=== PATIENT | female | born 1980 | race African-American/Black ===

== ENCOUNTER 2024-02-17 08:57 | Inpatient (IN) | payer BC, MEDICAID ==
[~2024-02-17] VITALS: Ht 167.6 cm; Wt 66.2 kg
[2024-02-17] MEDS ORDERED: MORPHINE SULFATE INJ 2 MG/ml SYRG IM ONE (09:15)
[2024-02-17 10:00] VITALS: PULSE 121; RESP 20; O2SAT 100
[2024-02-17] MEDS: ONDANSETRON HCL 4 MG/2 ML VIAL IV ONE (10:03)
[2024-02-17] MEDS: METOCLOPRAMIDE HCL 5MG/ml INJ 2ml VIAL IV ONE (10:04)
--- NOTE | 2024-02-17 10:05 | ED.PDOC ---
SOB-HPI HPI Comments 43 y.o female presents to the ED via EMS for a chief complaint of SOB. Patient reports no alleviating factors, has no respiratory illnesses or on oxygen at home. Patient also complains of abdominal pain, nausea, and hematemesis x 2 days. Patient admits to drinking alcohol daily. No other complaints at this time. Patient has a history of HTN, reports she is non compliant with medication and blood pressure reads 215/149 upon ED arrival. Chief Complaint: Shortness of Breath Time Seen by MD: 09:24 Reviewed notes: Nurses Notes, Medications, Allergies Information Source: Patient Mode of Arrival: EMS Severity: Moderate Timing: Days (2) Duration: Since onset Context: At Rest PE Risk Factors: None History of: None Modifying Factors: Nothing Associated Signs and Symptoms: Other Past Medical History PAST MEDICAL HISTORY: HTN Surgical History: Tubal Ligation STAINED GLASS INSTALLER History: No Pertinent STAINED GLASS INSTALLER History Family History Family History: Reviewed,noncontributory to illness Social History Smoker: Non-Smoker Alcohol: Heavy Drugs: Denies Drug Use Lives In: Home Constitutional: denies: chills, diaphoresis, fatigue, fever, malaise, sweats, weakness, others EENTM: denies: blurred vision, double vision, ear bleeding, ear discharge, ear drainage, ear pain, ear ringing, eye pain, eye redness, hearing loss, mouth pain, mouth swelling, nasal discharge, nose bleeding, nose congestion, nose pain, photophobia, tearing, throat pain, throat swelling, voice changes, others Respiratory: reports: SOB at rest, shortness of breath; denies: cough, hemoptys is, orthopnea, SOB with excertion, stridor, wheezing, others Cardiovascular: denies: chest pain, dizzy spells, diaphoresis, Dyspnea on exertion, edema, irregular heart beat, left arm pain, lightheadedness, palpitations, PND, syncope, others Gastrointestinal: reports: abdominal pain, hematemesis, nausea, vomiting; denies: abdomen distended, blood streaked bowels, constipated, diarrhea, dysphagia, difficulty swallowing, melena, poor appetite, poor fluid intake, rectal bleeding, rectal pain, others Genitourinary: denies: abnormal vagina bleeding, burning, dyspareunia, dysuria, flank pain, frequency, hematuria, incontinence, pain, , vagina discharge, urgency, others Neurological: denies: dizziness, fainting, headache, left sided numbness, left sided weakness, numbness, paresthesia, pre-existing deficit, right sided numbness, right sided weakness, seizure, speech problems, tingling, tremors, weakness, others Musculoskeletal: denies: back pain, gout, joint pain, joint swelling, muscle pain, muscle stiffness, neck pain, others Integumetry: denies: bruises, change in color, change in hair/nails, dryness, laceration, lesions, lumps, rash, wounds, others Allergic/Immunocompromised: denies: Difficulty Healing, Frequent Infections, Hives, Itching, others Hematologic/Lymphatic: denies: anemia, blood clots, easy bleeding, easy bruising, swollen glands, others Endocrine: denies: excessive hunger, excessive sweating, excessive thirst, excessive urination, flushing, intolerance to cold, intolerance to heat, unexplained weight gain, unexplained weight loss, others Psychiatric: denies: anxiety, bipolar disorder, depression, hopeless, panic disorder, schizophrenia, sleepless, suicidal, others All Other Systems: Reviewed and Negative Physical Exam General Appearance: No Apparent Distress, Normal HEENT: Normal ENT Inspection, Pharynx Normal, TMs Normal Neck: Full Range of Motion, Non-Tender, Normal, Normal Inspection Respiratory: Chest Non-Tender, Lungs Clear, No Accessory Muscle Use, No Respiratory Distress, Normal Breath Sounds Cardiovascular: No Edema, No JVD, No Murmur, No Gallop, Normal Peripheral Pulses, Regular Rate/Rhythm Breast Exam: Deferred Gastrointestinal: No Organomegaly, Non Tender, No Pulsatile Mass, Normal Bowel Sounds, Soft Genitalia: Deferred Pelvic: Deferred Rectal: Deferred Extremities: No calf tenderness, Normal capillary refill, Normal inspection, Normal range of motion, Non-tender, No pedal edema Musculoskeletal : Apperance: Normal Neurologic: Alert, assistant analyst II-XII nml as Tested, No Motor Deficits, Normal Affect, Normal Mood, No Sensory Deficits Cerebellar Function: Normal Reflexes: Normal Skin: Dry, Normal Color, Warm Lymphatic: No Adenopathy Was a procedure done? Was a procedure done?: No Differential Dx Differential Diagnosis: Asthma, Bronchitis, Pneumonia, Respiratory Distress, URI X-Ray, Labs, Meds, VS Vital Signs Date Time Temp Pulse Resp B/P (MAP) Pulse Ox O2 Delivery O2 Flow Rate FiO2 12/27/24 11:30 123 15 163/118 (133) 100 02/17/24 11:26 123 15 163/118 02/17/24 10:12 121 20 191/142 02/17/24 10:11 191/142 02/17/24 10:00 98.0 121 20 191/142 (158) 100 98.0 02/17/24 10:00 121 20 100 Room Air* 0 21 02/17/24 08:57 97.7 116 24 215/149 (171) 100 Lab Test 02/17/24 11:37 02/17/24 10:27 Range/Units Troponin I High Sensitivity 7 6 </=34 ng/L White Blood Count 9.3 4.4-10.8 10^3/uL Red Blood Count 4.64 4.0-5.20 10^6/uL Hemoglobin 13.7 12.2-16.2 g/dL Hematocrit 44.1 36.0-46.0 % Mean Corpuscular Volume 95.0 80.0-100.0 fL Mean Corpuscular Hemoglobin 29.6 28.0-32.0 pg Mean Corpuscular Hemoglobin Concent 31.1 L 32.0-36.0 g/dL Red Cell Distribution Width 19.2 H 11.8-14.3 % Platelet Count 125 L 140-450 10^3/uL Mean Platelet Volume 9.7 6.9-10.8 fL Neutrophils (%) (Auto) 87.5 H 37.0-80.0 % Lymphocytes (%) (Auto) 5.7 L 10.0-50.0 % Monocytes (%) (Auto) 6.2 0.0-12.0 % Eosinophils (%) (Auto) 0.0 0.0-7.0 % Basophils (%) (Auto) 0.6 0.0-2.0 % Neutrophils # (Auto) 8.1 1.6-8.6 10 ^3/uL Lymphocytes # (Auto) 0.5 0.4-5.4 10 ^3/uL Monocytes # (Auto) 0.6 0-1.3 10 ^3/uL Eosinophils # (Auto) 0 0-0.8 10 ^3/uL Basophils # (Auto) 0.1 0-0.2 10 ^3/uL Nucleated Red Blood Cells 0.6 % Prothrombin Time 10.5 9.3-11.8 sec Prothrombin Time INR 0.99 0.9-1.15 Activated Partial Thromboplast Time 25.9 24.5-34.5 SEC D-Dimer, Quantitative 2.56 H 0.0-0.49 mg/L FEU Sodium Level 132 L 136-145 mmol/L Potassium Level 3.9 3.5-5.1 mmol/L Chloride Level 98 98-107 mmol/L Carbon Dioxide Level < 10 *L 20-31 mmol/L Anion Gap 24.51565 H 5-15 Blood Urea Nitrogen 9 9-23 mg/dL Creatinine 1.30 H 0.550-1.02 mg/dL Glomerular Filtration Rate Calc 52 >90 mL/min BUN/Creatinine Ratio 6.9 L 10.0-20.0 Serum Glucose 116 H 74-106 mg/dL Calcium Level 10.7 H 8.7-10.4 mg/dL Magnesium Level 2.1 1.6-2.6 mg/dL Total Bilirubin 1.8 H 0.2-1.0 mg/dL Aspartate Amino Transferase (AST) 171 H 13-40 U/L Alanine Aminotransferase (ALT) 41 H 7-40 U/L Alkaline Phosphatase 186 H 46-116 U/L Ammonia 52 H 11-32 umol/L B-Type Natriuretic Peptide 29.10 0-100 pg/mL Total Protein 9.1 H 5.7-8.2 g/dL Albumin 5.5 H 3.2-4.8 g/dL Plasma/Serum Blood Alcohol < 3.0 <10 mg/dL Current Medications Medications (Trade) Dose Ordered Sig/Artemio Route Start Time Stop Time Status Last Admin Hydrochlorothiazide (hydroCHLOROthiazide TABLET) 25 mg ONCE ONCE PO 02/17/24 09:15 02/17/24 09:16 DC 02/17/24 10:11 Metoclopramide HCl (Reglan Injection) 10 mg ONCE ONCE IV 02/17/24 10:00 02/17/24 10:01 DC 02/17/24 10:04 Ondansetron HCl (Zofran) 4 mg ONCE ONCE IV 02/17/24 10:00 02/17/24 10:01 NV 02/17/24 10:03 Sodium Chloride 1,000 ml @ 150 mls/hr Q6H40M ONCE IV 02/17/24 10:00 02/17/24 16:39 02/17/24 10:07 Morphine Sulfate 2 mg ONCE ONCE IV 02/17/24 10:15 02/17/24 10:16 DC 02/17/24 10:12 Time of 1ST Reevaluation: 10:07 Reevaluation 1ST: Unchanged Patient Education/Counseling: Diagnosis, Treatment, Prognosis Family Education/Counseling: No Family Present Additional Information The following tests were ordered, and results were reviewed by me: LAB, CT ABD, CXR, EKG, PHA Additional Information was gathered from interviewing the following independent historians: paramedics I reviewed and agreed with the following test results read by other providers: CT ABD and CXR I discussed treatment and results with medical personnel and patient Departure 1 Departure Time of Disposition: 12:45 Impression: Primary Impression: Acidosis due to type 1 diabetes mellitus Additional Impressions: Hypertension Renal failure Dehydration MADELINE (acute kidney injury) Disposition: ADMITTED INPATIENT Admit to: ICU Condition: Critical Critical Care Note Critical Care Time?: No Stability Stability form required: No I personally scribed for TIMMY FLORES MD ([email or web address]) on 02/17/24 at 10:12. Electronically submitted by Shari Vargas ([facility]). I personally scribed for TIMMY FLORES MD ([email or web address]) on 02/17/24 at 10:15. Electronically submitted by Shari Vargas ([facility]). TIMMY FLORES MD Feb 17, 2024 10:05
[2024-02-17] MEDS: SODIUM CHLORIDE 0.9% 1,000 ML IV ONE (10:07)
[2024-02-17] MEDS: hydroCHLOROthiazide 25 MG TAB PO ONE (10:11)
[2024-02-17] MEDS: MORPHINE SULFATE INJ 2 MG/ml SYRG IV ONE (10:12)
[2024-02-17 10:48] LABS: Basophils # (auto) 0.1 10 ^3/uL (0-0.2); Basophils % (auto) 0.6 % (0.0-2.0); Eosinophils # (auto) 0 10 ^3/uL (0-0.8); Lymphocytes # (auto) 0.5 10 ^3/uL (0.4-5.4); Monocytes # (auto) 0.6 10 ^3/uL (0-1.3); Neutrophils % (auto) 87.5 % (37.0-80.0)
[2024-02-17 10:50] LABS: Hematocrit 44.1 % (36.0-46.0); Hemoglobin 13.7 g/dL (12.2-16.2); Lymphocytes % (auto) 5.7 % (10.0-50.0); Mean Corpuscular Hemoglobin 29.6 pg (28.0-32.0); Mean Corpuscular Hgb Conc. 31.1 g/dL (32.0-36.0); Monocytes % (auto) 6.2 % (0.0-12.0); Neutrophils # (auto) 8.1 10 ^3/uL (1.6-8.6); Nucleated Red Blood Cells % 0.6 %; Platelet Count (auto) 125 10^3/uL (140-450); Red Blood Cells 4.64 10^6/uL (4.0-5.20); Red Cell Distribution Width 19.2 % (11.8-14.3); White Blood Cell 9.3 10^3/uL (4.4-10.8)
[2024-02-17 11:03] LABS: Anion Gap 24.00001 (5-15); BUN/Creatinine Ratio 6.9 (10.0-20.0); Magnesium 2.1 mg/dL (1.6-2.6); Potassium 3.9 mmol/L (3.5-5.1)
[2024-02-17 11:04] LABS: INR 0.99 (0.9-1.15); Partial Thromboplastin Time 25.9 SEC (24.5-34.5); Prothrombin Time 10.5 sec (9.3-11.8)
[2024-02-17 11:09] LABS: Alanine Aminotransferase 41 U/L (7-40); Albumin 5.5 g/dL (3.2-4.8); Alkaline Phosphatase 186 U/L (46-116); Aspartate Aminotransferase 171 U/L (13-40); Bilirubin, Total 1.8 mg/dL (0.2-1.0); Blood Urea Nitrogen 9 mg/dL (9-23); Calcium 10.7 mg/dL (8.7-10.4); Chloride 98 mmol/L (98-107); Glucose 116 mg/dL (74-106); Sodium 132 mmol/L (136-145); Total Protein 9.1 g/dL (5.7-8.2)
[2024-02-17 11:10] LABS: Carbon Dioxide < 10 mmol/L (20-31)
[2024-02-17 11:21] LABS: Blood Alcohol < 3.0 mg/dL (<10)
[2024-02-17 12:48] VITALS: PULSE 111; RESP 22; O2SAT 100
[2024-02-17 12:49] LABS: Urine Bacteria None Seen /hpf (None Seen)
[2024-02-17] MEDS: cloNIDine HCL 0.1 MG TAB PO ONE (13:12)
[2024-02-17] MEDS: SODIUM CHLORIDE 0.9% 1,700 ML IV ONE (13:13)
[2024-02-17 13:18] LABS: Urine Blood 1+ /uL (Negative); Urine Clarity Turbid (Clear); Urine Color Yellow (Yellow); Urine Hyaline Cast MANY /lpf (0 - 2); Urine Mucus FEW (None Seen); Urine Protein, UAD 2+ (Negative); Urine Specific Gravity 1.018 (1.001-1.035); Urine Squamous Epithelial Cell FEW /hpf (<5); Urine Urobilinogen 4 mg/dL (Negative); Urine WBC 1 /hpf (0 - 5)
[2024-02-17 13:18] LABS: Base Excess -18.7 mmol/L (-2.0-3.0)
[2024-02-17 13:25] LABS: Opiate Scree,Urine Neg (NEGATIVE)
[2024-02-17 13:28] LABS: Amphetamine Screen, Urine Neg (NEGATIVE); Barbiturate Scree,Urine Neg (NEGATIVE); Benzodiazephine Screen, Urine Neg (NEGATIVE); Cannabinoid Screen, Urine Neg (NEGATIVE); Cocaine Screen, Urine Neg (NEGATIVE); Phencyclidine Screen, Urine Neg (NEGATIVE)
[2024-02-17] MEDS ORDERED: ALBU1AER4 IN (14:46)
--- NOTE | 2024-02-17 14:56 | DVH ---
CHEST RADIOGRAPH Indication: cough Technique: Single frontal view of the chest was obtained Comparison: None FINDINGS: Lines and Tubes: None Lungs: No focal consolidation. Pleura: No effusion. No pneumothorax. Cardiomediastinal contours: Unremarkable Bones: No acute osseous abnormality. IMPRESSION: No acute cardiopulmonary disease.
--- NOTE | 2024-02-17 15:09 | DVH ---
CT ABDOMEN AND PELVIS WITHOUT CONTRAST CLINICAL HISTORY: abdominal pain, GI bleed TECHNIQUE: Multiple contiguous axial images of the abdomen and pelvis without intravenous contrast. The images were reformatted degenerate coronal and sagittal reconstructions. All CT scans at this medical facility are performed using dose modulation techniques as appropriate t o a performed exam including the following:Automated exposure control was utilized; adjustment of the MA and/or KV according to patient size; and use of iterative reconstruction technique. Radiation Dose Information: CT Dose: CTDI volume is 7 mGy. Dose-length product is 382 mGy*cm Comparison: None FINDINGS: Evaluation of the abdomen and pelvis is limited without intravenous contrast. There is moderate edema and fat stranding surrounding the pancreas compatible with acute pancreatitis . There is no discrete peripancreatic localized fluid collection or cyst. There is diffuse fatty infiltration of the liver. The gallbladder, kidneys, adrenal glands, and s pleen appear within normal limits. There is no gross evidence of abdominal lymphadenopathy. There is no free fluid or free air. The stomach grossly appears unremarkable. The small and large bowel loops demonstrate normal caliber . There is a normal-appearing appendix seen in the right lower quadrant abdomen. The abdominal aorta and IVC appear within normal limits. The bladder appears unremarkable for the degree of distention. Pelvic organ appears within normal farris its. There is no gross evidence of a pelvic mass. There is no free fluid collection. Lung bases are clear. There is no acute osseous abnormality. IMPRESSION: 1. There is moderate edema and fat stranding surrounding the pancreas compatible with acute pancreati tis. There is no discrete localized fluid collection or cyst. 2. Hepatic steatosis. HS:Y
[2024-02-17] MEDS: LACTATED RINGER'S 1,700 ML IV ONE (16:16)
[2024-02-17 17:10] LABS: Amylase 366 U/L (30-118)
[2024-02-17 18:07] LABS: Lipase 1254 U/L (12-53)
[2024-02-17 20:41] LABS: Alanine Aminotransferase 25 U/L (7-40); Albumin 4.3 g/dL (3.2-4.8); Anion Gap 17 (5-15); BUN/Creatinine Ratio 6.7 (10.0-20.0); Calcium 9.7 mg/dL (8.7-10.4); Chloride 103 mmol/L (98-107)
[2024-02-17 20:42] LABS: Total Protein 7.3 g/dL (5.7-8.2)
[2024-02-17 21:02] LABS: Alkaline Phosphatase 141 U/L (46-116); Aspartate Aminotransferase 93 U/L (13-40); Bilirubin, Total 1.6 mg/dL (0.2-1.0); Blood Urea Nitrogen 7 mg/dL (9-23); Carbon Dioxide 13 mmol/L (20-31); Glucose 124 mg/dL (74-106); Potassium 3.4 mmol/L (3.5-5.1); Sodium 133 mmol/L (136-145)
[2024-02-17] MEDS ORDERED: METOCLOPRAMIDE HCL 5MG/ml INJ 2ml VIAL IV PRN (21:45)
[2024-02-17] MEDS ORDERED: NITROGLYCERIN 0.4 MG SL TAB SL PRN (21:45)
[2024-02-17] MEDS ORDERED: MORPHINE SULFATE INJ 2 MG/ml SYRG IV PRN (21:45)
[2024-02-17] MEDS: SODIUM CHLORIDE 0.9% 1,000 ML IV SCH (22:09)
[2024-02-17 22:28] LABS: Basophils # (auto) 0.1 10 ^3/uL (0-0.2); Basophils % (auto) 0.7 % (0.0-2.0); Eosinophils # (auto) 0 10 ^3/uL (0-0.8); Eosinophils % (auto) 0.5 % (0.0-7.0); Hematocrit 39.8 % (36.0-46.0); Hemoglobin 12.4 g/dL (12.2-16.2); Lymphocytes # (auto) 0.6 10 ^3/uL (0.4-5.4); Lymphocytes % (auto) 6.5 % (10.0-50.0); Mean Corpuscular Hemoglobin 29.5 pg (28.0-32.0); Mean Corpuscular Hgb Conc. 31.1 g/dL (32.0-36.0); Mean Corpuscular Volume 94.8 fL (80.0-100.0); Monocytes # (auto) 0.6 10 ^3/uL (0-1.3); Neutrophils # (auto) 7.6 10 ^3/uL (1.6-8.6); Neutrophils % (auto) 85.3 % (37.0-80.0); Nucleated Red Blood Cells % 0.3 %; Platelet Count (auto) 109 10^3/uL (140-450); Red Blood Cells 4.19 10^6/uL (4.0-5.20); White Blood Cell 8.9 10^3/uL (4.4-10.8)
[2024-02-18] VITALS (7 sets, daily range): BP systolic 132–150; BP diastolic 86–104; PULSE 86–114; RESP 13–20; TEMP 97.8–99; O2SAT 97–100
[2024-02-18] MEDS: ONDANSETRON HCL 4 MG/2 ML VIAL IV PRN (01:03)
[2024-02-18] MEDS: MORPHINE SULFATE INJ 2 MG/ml SYRG IV PRN (01:04)
[2024-02-18] MEDS ORDERED: LORazepam 2MG/ML-1ML VIAL IV PRN (03:00)
--- NOTE | 2024-02-18 03:02 | DVHHP2 ---
BLACK KAPLAN VISUAL MERCHANDISING MANAGER 02/18/24 0302: History of Present Illness Reason for Visit: Abdominal pain, n/v History of Present Illness 43-year-old female with Past medical history of hypertension presents with complaints of abdominal pain, nausea, vomiting, Red Streaking in her emesis x2 days. Also endorses the shortness of breath which is triggered by The abdominal pain. Patient does endorse daily alcohol consumption. No history of diabetes. On arrival to the emergency department patient is noted to be hypertensive with the blood pressure 215/149 And started on a nicardipine drip. At this time patient denied fevers, chills, shortness of breath, Chest pain, palpitations, Coffee ground emesis, hematochezia, melena. Cardiovascular: HTN Smoke: <1 pack per day ALCOHOL: heavy Drugs: None Lives: with Family Review of Systems Constitutional: No: Fever, Chills, Sweats, Weakness, Malaise, Other Eyes: No: Pain, Vision change, Conjunctivae inflammation, Eyelid inflammation, Other, Redness ENT: No: Ear pain, Ear discharge, Nose pain, Nose discharge, Nose congestion, Mouth pain, Mouth swelling, Throat pain, Throat swelling, Other Respiratory: Shortness of breath; No: Cough, Dry, SOB with excertion, Wheezing, Hemoptysis, Pleuritic Pain, Sputum, Wheezing, Other Cardiovascular: No: Chest Pain, Palpitations, Orthopnea, Paroxysmal Noc. Dyspnea, Edema, Lt Headedness, Other Gastrointestinal: Nausea, Vomiting, Abdominal Pain; No: Diarrhea, Constipation, Melena, Hematochezia, Other Genitourinary: No Dysuria, No Frequency, No Incontinence, No Hematuria, No Retention, No Other Musculoskeletal: No: other, neck pain, shoulder pain, arm pain, back pain, hand pain, leg pain, foot pain Skin: No: Rash, Lesions, Jaundice, Bruising, Other Neurological: No: Weakness, Numbness, Incoordination, Change in speech, Confusion, Seizures, Other Allergies: Coded Allergies: Lisinopril (Verified Allergy, Unknown, 02/17/24) Medications Current Medications Medications Dose Ordered Sig/Artemio Route Start Time Stop Time Status Last Admin Dose Admin Nicardipine HCl 250 ml @ 50 mls/hr Q5H IV 02/17/24 14:15 02/17/24 22:00 25 MLS/HR Sodium Chloride 1,000 ml @ 150 mls/hr Q6H40M IV 02/17/24 21:45 02/17/24 22:10 150 MLS/HR Metoclopramide HCl 10 mg Q4HP PRN IV 02/17/24 21:45 Acetaminophen 650 mg Q6HP PRN PO 02/17/24 21:45 Ondansetron HCl 4 mg Q4HP PRN IV 02/17/24 21:45 02/18/24 01:03 4 MG Morphine Sulfate 4 mg Q4HPRN PRN IV 02/17/24 21:45 02/18/24 01:04 4 MG Enoxaparin Sodium 40 mg DAILY SC 02/18/24 10:00 Nitroglycerin 0.4 mg Q5MINP PRN SL 02/17/24 21:45 Morphine Sulfate 2 mg Q30M PRN IV 02/17/24 21:45 Hydralazine HCl 10 mg Q4HP PRN IV 02/17/24 21:45 Folic Acid 1 mg/ Magnesium Sulfate 8 meq/ Multivitamins 10 ml/Thiamine HCl 100 mg/Sodium Chloride 1,013.2 ml @ 126.247 mls/hr DAILY@1800 INJ 02/18/24 18:00 UNV Lorazepam 1 mg Q4HPRN PRN IV 02/18/24 03:00 UNV Exam Vital Signs Vital Signs Date Time Temp Pulse Resp B/P (MAP) Pulse Ox O2 Delivery O2 Flow Rate FiO2 02/18/24 02:15 103 18 123/90 (101) 98 02/17/24 19:30 Room Air* 0 21 02/17/24 19:30 97.7 97.7 General Appearance: Alert, Oriented X3, Cooperative, moderate distress HEENT: Atraumatic, PERRLA, EOMI Respiratory: Clear to auscultation, Normal air movement Cardiovascular: Normal S1, Normal S2, Other (Tachycardia) Abdominal: Normal bowel sounds, Soft, No tenderness Extremities: No clubbing, No cyanosis, No edema Skin: No rashes, No breakdown Neuro: Normal speech, Strength at 5/5 X4 ext Psych/Mental Status: Mental status NL, Mood NL Labs/Xrays Labs Test 02/17/24 22:19 02/17/24 20:10 02/17/24 13:31 12/27/24 13:18 Range/Units White Blood Count 8.9 4.4-10.8 10^3/uL Red Blood Count 4.19 4.0-5.20 10^6/uL Hemoglobin 12.4 12.2-16.2 g/dL Hematocrit 39.8 36.0-46.0 % Mean Corpuscular Volume 94.8 80.0-100.0 fL Mean Corpuscular Hemoglobin 29.5 28.0-32.0 pg Mean Corpuscular Hemoglobin Concent 31.1 L 32.0-36.0 g/dL Red Cell Distribution Width 19.0 H 11.8-14.3 % Platelet Count 109 L 140-450 10^3/uL Mean Platelet Volume 10.3 6.9-10.8 fL Neutrophils (%) (Auto) 85.3 H 37.0-80.0 % Lymphocytes (%) (Auto) 6.5 L 10.0-50.0 % Monocytes (%) (Auto) 7.0 0.0-12.0 % Eosinophils (%) (Auto) 0.5 0.0-7.0 % Basophils (%) (Auto) 0.7 0.0-2.0 % Neutrophils # (Auto) 7.6 1.6-8.6 10 ^3/uL Lymphocytes # (Auto) 0.6 0.4-5.4 10 ^3/uL Monocytes # (Auto) 0.6 0-1.3 10 ^3/uL Eosinophils # (Auto) 0 0-0.8 10 ^3/uL Basophils # (Auto) 0.1 0-0.2 10 ^3/uL Nucleated Red Blood Cells 0.3 % Sodium Level 133 L 136-145 mmol/L Potassium Level 3.4 L 3.5-5.1 mmol/L Chloride Level 103 98-107 mmol/L Carbon Dioxide Level 13 L 20-31 mmol/L Anion Gap 17 H 5-15 Blood Urea Nitrogen 7 L 9-23 mg/dL Creatinine 1.05 H 0.550-1.02 mg/dL Glomerular Filtration Rate Calc 67 >90 mL/min BUN/Creatinine Ratio 6.7 L 10.0-20.0 Serum Glucose 124 H 74-106 mg/dL Calcium Level 9.7 8.7-10.4 mg/dL Total Bilirubin 1.6 H 0.2-1.0 mg/dL Aspartate Amino Transferase (AST) 93 H 13-40 U/L Alanine Aminotransferase (ALT) 25 7-40 U/L Alkaline Phosphatase 141 H 46-116 U/L Total Protein 7.3 5.7-8.2 g/dL Albumin 4.3 3.2-4.8 g/dL Troponin I High Sensitivity 7 </=34 ng/L POC Glucose 137 H 70-106 mg/dl Test 02/17/24 13:10 02/17/24 10:27 02/17/24 10:15 Range/Units Blood Gas Specimen Type Arterial Blood Gas Sample Site Right radial Blood Gas Patient Temperature 37.0 Arterial Blood Date Drawn [id number] Arterial Blood pH 7.238 *L 7.350-7.450 Arterial Blood Partial Pressure CO2 14.4 *L 32.0-45.0 mmHg Arterial Blood Partial Pressure O2 105.6 83.0-108.0 mmHg Arterial Blood HCO3 6.0 L 21.0-28.0 mmol/L Arterial Blood Oxygen Saturation 97.9 94.0-98.0 % Arterial Blood Base Excess -18.7 L -2.0-3.0 mmol/L Arterial Blood Oxyhemoglobin 96.1 94.0-98.0 % Arterial Blood Carboxyhemoglobin 1.2 0.5-1.5 % Arterial Blood Methemoglobin 0.6 0.0-1.5 % Iván Test Yes Blood Gas Total Hemoglobin 14.10 12.0-16.0 g/dL Blood Gas Modality Room air FiO2 % 21.0 Blood Gas Critical Value Read Back Yes Blood Gas Notified Whom Danita martins. Blood Gas Notified Time [id number] Blood Gas Notified By Yasmany belcher Prothrombin Time 10.5 9.3-11.8 sec Prothrombin Time INR 0.99 0.9-1.15 Activated Partial Thromboplast Time 25.9 24.5-34.5 SEC D-Dimer, Quantitative 2.56 H 0.0-0.49 mg/L FEU Magnesium Level 2.1 1.6-2.6 mg/dL Ammonia 52 H 11-32 umol/L Lactate Dehydrogenase 291 H 120-246 U/L B-Type Natriuretic Peptide 29.10 0-100 pg/mL Amylase Level 366 H 30-118 U/L Lipase 1254 H 12-53 U/L Plasma/Serum Blood Alcohol < 3.0 <10 mg/dL Urine Color Yellow Yellow Urine Clarity Turbid H Clear Urine pH 6.0 5.0-9.0 Urine Specific Mcintosh 1.018 1.001-1.035 Urine Protein 2+ H Negative Urine Ketones 4+ H Negative Urine Blood 1+ H Negative /uL Urine Nitrite Negative Negative Urine Bilirubin 1+ H Negative Urine Urobilinogen 4 H Negative mg/dL Urine Leukocyte Esterase Negative Negative /uL Urine RBC <1 0 - 4 /hpf Urine WBC 1 0 - 5 /hpf Urine Squamous Epithelial Cells Few <5 /hpf Urine Bacteria None seen None Seen /hpf Urine Hyaline Casts Many 0 - 2 /lpf Urine Mucus Few None Seen Urine Glucose Normal Normal mg/dL Urine Test Negative Negative Urine Opiates Screen Neg NEGATIVE Urine Fentanyl Screen Neg NEGATIVE Urine Barbiturates Screen Neg NEGATIVE Urine Phencyclidine Screen Neg NEGATIVE Urine Amphetamines Screen Neg NEGATIVE Urine Benzodiazepines Screen Neg NEGATIVE Urine Cocaine Screen Neg NEGATIVE Urine Cannabinoids Screen Neg NEGATIVE Assessment/Plan Assessment/Plan Acute pancreatitis, likely alcohol induced Severe metabolic acidosis Dehydration Hypertensive urgency Transaminitis Alcohol dependence Plan Admit ICU Cardiology consult. Echocardiogram. Continue nicardipine drip or ICU protocol. Gastroenterology consult. NPO diet. IVF. Banana bag. Seizure precautions. Ativan IV for seizures Monitor BMP, phos, mag every six hours. GI ppx protonix / DVT ppx lovenox Plan discussed with: Patient My Orders Orders - BLACK KAPLAN NP Procedure Category Date Status Time Admit ADMIT 02/17/24 Transmitted 21:40 Code Status CODE 02/17/24 Transmitted 21:40 Vital Signs [facility] 02/17/24 In Process 21:40 Review Orders With JORDAN 02/17/24 In Process Adm. 21:40 Encourage Activity As JORDAN 02/17/24 In Process Tolerate 21:40 Npo (Nothing By DIET 02/18/24 Transmitted Mouth) Diet Breakfast Sodium Chloride 0.9% PHA 02/17/24 In Process 21:45 Oxygen By Face Mask RT 02/17/24 Transmitted 21:40 Metoclopramide PHA 02/17/24 In Process Injection (Reglan 21:45 Acetaminophen Tablet PHA 02/17/24 In Process (Tylenol Tablet) 21:45 Notify Of Changes JORDAN 02/17/24 In Process From Base 21:40 Advance Directive JORDAN 02/17/24 In Process 21:40 Echo 2d Mode Cardiac US 02/17/24 Logged DOP 21:40 Basic Metabolic Panel LAB 02/18/24 Logged 06:00 Basic Metabolic Panel LAB 02/18/24 Logged 12:00 Basic Metabolic Panel LAB 02/18/24 Logged 18:00 Basic Metabolic Panel LAB 02/19/24 Verified 00:00 Basic Metabolic Panel LAB 02/19/24 Verified 06:00 Basic Metabolic Panel LAB 02/19/24 Verified 12:00 Patient Condition ORDERS 02/17/24 Transmitted 21:40 Allergies JORDAN 02/17/24 In Process 21:40 Ondansetron Hcl PHA 02/17/24 In Process (Zofran) 21:45 Morphine Sulfate PHA 02/17/24 In Process Injection 21:45 Enoxaparin Sodium PHA 02/18/24 In Process (Lovenox) 10:00 Sequential JORDAN 02/17/24 In Process Compression Device Nitroglycerin PHA 02/17/24 In Process Sublingual (Ntrostat 21:45 Morphine Sulfate PHA 02/17/24 In Process Injection 21:45 Stat Ekg For Chest JORDAN 02/17/24 In Process Pain 21:40 Notify Of Changes JORDAN 02/17/24 In Process From Base 21:40 Liability Claims Adjuster For JRODAN 02/17/24 In Process 24 Hours 21:40 Emergency Dysrhythmia JORDAN 02/17/24 In Process Protocol 21:40 Rhythm Strips Once JORDAN 02/17/24 In Process Every Shift 21:40 Oxygen By Nasal RT 02/17/24 Transmitted Cannula 21:40 Communication Order ORDERS 02/17/24 Transmitted 21:40 * Gi Dvh Barrel Brander CONS 02/17/24 Transmitted 21:40 Lipase LAB 02/18/24 Logged 06:00 Magnesium LAB 02/18/24 Logged 06:00 Magnesium LAB 02/18/24 Logged 12:00 Magnesium LAB 02/18/24 Logged 18:00 Magnesium LAB 02/19/24 Verified 00:00 Phosphorus LAB 02/18/24 Logged 06:00 Phosphorus LAB 02/18/24 Logged 12:00 Phosphorus LAB 02/18/24 Logged 18:00 Phosphorus LAB 02/19/24 Verified 00:00 Hydralazine Injection PHA 02/17/24 In Process (Apresoline Inject 21:45 * Cardiology Consult CONS 02/17/24 Transmitted 21:40 Seizure Precautions JORDAN 02/18/[address] 02:49 Folic Acid... PHA 02/18/24 Logged 18:00 Lorazepam 2mg/Ml Inj PHA 02/18/24 Logged (Ativan Inj) 03:00 Date of Service: Feb 18, 2024 Billing Provider: BRITTANY HEADLEY MD Common Visit Codes: NOT BILLABLE BRITTANY HEADLEY MD 02/18/24 1707: Review of Systems Allergies: Coded Allergies: Lisinopril (Verified Allergy, Unknown, 02/17/24) Additional Comments Additional Comments Additional Comments 43-year-old female who initially presented to the hospital with abdominal pain nausea vomiting found to have 1. Acute alcohol-induced pancreatitis 2. Transaminitis 3. Severe metabolic acidosis secondary to nausea vomiting 4. Hypophosphatemia 5. Hypokalemia -alcohol abstinence recommended, repeat lipase, liquid diet Repeat labs, replace potassium phosphorus. BLACK KAPLAN NP Feb 18, 2024 03:02 BRITTANY HEADLEY MD Feb 18, 2024 17:07
[2024-02-18 05:00] LABS: Chloride 102 mmol/L (98-107)
[2024-02-18 05:01] LABS: Anion Gap 12 (5-15); Calcium 9.8 mg/dL (8.7-10.4)
[2024-02-18 05:06] LABS: Carbon Dioxide 19 mmol/L (20-31); Potassium 3.1 mmol/L (3.5-5.1); Sodium 133 mmol/L (136-145)
[2024-02-18 05:07] LABS: BUN/Creatinine Ratio 5.6 (10.0-20.0); Blood Urea Nitrogen < 5 mg/dL (9-23); Glucose 114 mg/dL (74-106); Magnesium 1.6 mg/dL (1.6-2.6)
[2024-02-18 05:08] LABS: Phosphorus 1.2 mg/dL (2.4-5.1)
[2024-02-18] MEDS: POTASSIUM CHL 20MEQ/100ML 100 ML IV ONE (05:28)
[2024-02-18] MEDS: ENOXAPARIN SOD 40 MG/0.4 ML SYRINGE SC SCH (11:52)
[2024-02-18 12:35] LABS: Magnesium 1.7 mg/dL (1.6-2.6)
[2024-02-18 12:37] LABS: Phosphorus 0.7 mg/dL (2.4-5.1)
[2024-02-18 13:20] LABS: Chloride 103 mmol/L (98-107)
[2024-02-18 13:21] LABS: Anion Gap 13 (5-15); Calcium 9.8 mg/dL (8.7-10.4)
[2024-02-18 13:26] LABS: Glucose 102 mg/dL (74-106)
[2024-02-18 13:39] LABS: BUN/Creatinine Ratio 6.4 (10.0-20.0); Blood Urea Nitrogen < 5 mg/dL (9-23); Carbon Dioxide 17 mmol/L (20-31); Potassium 3.2 mmol/L (3.5-5.1); Sodium 133 mmol/L (136-145)
[2024-02-18] MEDS: ACETAMINOPHEN 325 MG TAB PO PRN (15:54)
[2024-02-18] MEDS: POTASSIUM PHOSPHATE 26.4 MEQ in SODIUM CHL 0.9% 100 ML IV ONE (18:11)
[2024-02-18] MEDS: FOLIC ACID 1 MG, MAGNESIUM SULF SDV 50% 8 MEQ, MULTIPLE VITAMIN 10 ML, THIAMINE INJ 100... INJ SCH (19:04)
[2024-02-18 19:38] LABS: Chloride 102 mmol/L (98-107)
[2024-02-18 19:39] LABS: Anion Gap 10 (5-15); Calcium 9.8 mg/dL (8.7-10.4); Carbon Dioxide 23 mmol/L (20-31)
[2024-02-18 19:40] LABS: Potassium 2.9 mmol/L (3.5-5.1); Sodium 135 mmol/L (136-145)
[2024-02-18 19:44] LABS: BUN/Creatinine Ratio 7.2 (10.0-20.0); Blood Urea Nitrogen 5 mg/dL (9-23); Glucose 93 mg/dL (74-106)
[2024-02-18 19:59] LABS: Magnesium 1.5 mg/dL (1.6-2.6); Phosphorus 0.6 mg/dL (2.4-5.1)
--- NOTE | 2024-02-18 22:14 | DVHINCON2 ---
Date of service: Feb 18, 2024 Referring Physician Bhavana Ernandez Reason for Consultation Nausea vomiting and elevated liver enzymes and pancreatitis History of Present Illness 43-year-old female with past medical history of hypertension presents with complaints of abdominal pain, nausea, vomiting, red streaking in her emesis x2 days. Also endorses the shortness of breath which is triggered by the abdominal pain. Patient does endorse daily alcohol consumption. No history of diabetes. On arrival to the emergency department patient is noted to be hypertensive with the blood pressure 215/149 And started on a nicardipine drip. At this time patient denied fevers, chills, shortness of breath, Chest pain, palpitations, Coffee ground emesis, hematochezia, melena. Patient was seen in ER bed 24 in the a.m.. She was feeling better and was ready to try clear liquid diet. She has not had a recent endoscopy. Patient had moderate elevation in her lipase suggestive of acute pancreatitis and suspected mild gastritis Past Medical History Cardiovascular: HTN Asthma Chronic ETOH abuse Past Surgical History Tubal ligation Family History: Hypercholesterolemia G8 FATHER Hypertension G8 FATHER Allergies: Coded Allergies: Lisinopril (Verified Allergy, Unknown, 02/17/24) Home Meds Active Scripts Albuterol Sulfate (Proair Respiclick) 108 Mcg/Act Aer, 108 MCG IN QIDPRN, #1 AER Prov:TIMMY FLORES MD 02/17/24 Current Medications Current Medications Medications (Trade) Dose Ordered Sig/Artemio Route PRN Reason Start Time Stop Time Status Last Admin Enoxaparin Sodium (Lovenox) 40 mg DAILY SC 02/18/24 10:00 Folic Acid 1 mg/ Magnesium Sulfate 8 meq/ Multivitamins 10 ml/Thiamine HCl 100 mg/Sodium Chloride 1,013.2 ml @ 126.247 mls/hr DAILY@1800 INJ 02/18/24 18:00 02/18/24 19:04 Lorazepam (Ativan Inj) 1 mg Q4HPRN PRN IV SEIZURES 02/18/24 03:00 Vital Signs Vital Signs Date Time Temp Pulse Resp B/P (MAP) Pulse Ox O2 Delivery O2 Flow Rate FiO2 02/18/24 21:00 98.7 102 18 143/98 (113) 99 98.7 02/18/24 14:00 Room Air* 0 21 Physical Exam General Appearance: Alert, Oriented X3, Cooperative, no distress HEENT: Atraumatic, PERRLA, EOMI Respiratory: Clear to auscultation, Normal air movement Cardiovascular: Normal S1, Normal S2, Other (Tachycardia) Abdominal: Normal bowel sounds, Soft, No tenderness Extremities: No clubbing, No cyanosis, No edema Skin: No rashes, No breakdown Neuro: Normal speech, Strength at 5/5 X4 ext Psych/Mental Status: Mental status NL, Mood NL Labs/Diagnostic Data Labs Test 02/18/24 18:53 02/18/24 04:05 02/17/24 22:19 02/17/24 20:10 Range/Units Sodium Level 135 L 136-145 mmol/L Potassium Level 2.9 L 3.5-5.1 mmol/L Chloride Level 102 98-107 mmol/L Carbon Dioxide Level 23 20-31 mmol/L Anion Gap 10 5-15 Blood Urea Nitrogen 5 L 9-23 mg/dL Creatinine 0.69 0.550-1.02 mg/dL Glomerular Filtration Rate Calc 109 >90 mL/min BUN/Creatinine Ratio 7.2 L 10.0-20.0 Serum Glucose 93 74-106 mg/dL Calcium Level 9.8 8.7-10.4 mg/dL Phosphorus Level 0.6 L 2.4-5.1 mg/dL Magnesium Level 1.5 L 1.6-2.6 mg/dL Lipase 867 H 12-53 U/L White Blood Count 8.9 4.4-10.8 10^3/uL Red Blood Count 4.19 4.0-5.20 10^6/uL Hemoglobin 12.4 12.2-16.2 g/dL Hematocrit 39.8 36.0-46.0 % Mean Corpuscular Volume 94.8 80.0-100.0 fL Mean Corpuscular Hemoglobin 29.5 28.0-32.0 pg Mean Corpuscular Hemoglobin Concent 31.1 L 32.0-36.0 g/dL Red Cell Distribution Width 19.0 H 11.8-14.3 % Platelet Count 109 L 140-450 10^3/uL Mean Platelet Volume 10.3 6.9-10.8 fL Neutrophils (%) (Auto) 85.3 H 37.0-80.0 % Lymphocytes (%) (Auto) 6.5 L 10.0-50.0 % Monocytes (%) (Auto) 7.0 0.0-12.0 % Eosinophils (%) (Auto) 0.5 0.0-7.0 % Basophils (%) (Auto) 0.7 0.0-2.0 % Neutrophils # (Auto) 7.6 1.6-8.6 10 ^3/uL Lymphocytes # (Auto) 0.6 0.4-5.4 10 ^3/uL Monocytes # (Auto) 0.6 0-1.3 10 ^3/uL Eosinophils # (Auto) 0 0-0.8 10 ^3/uL Basophils # (Auto) 0.1 0-0.2 10 ^3/uL Nucleated Red Blood Cells 0.3 % Total Bilirubin 1.6 H 0.2-1.0 mg/dL Aspartate Amino Transferase (AST) 93 H 13-40 U/L Alanine Aminotransferase (ALT) 25 7-40 U/L Alkaline Phosphatase 141 H 46-116 U/L Total Protein 7.3 5.7-8.2 g/dL Albumin 4.3 3.2-4.8 g/dL Test 02/17/24 13:31 02/17/24 13:18 02/17/24 13:10 02/17/24 10:27 Range/Units Troponin I High Sensitivity 7 </=34 ng/L POC Glucose 137 H 70-106 mg/dl Blood Gas Specimen Type Arterial Blood Gas Sample Site Right radial Blood Gas Patient Temperature 37.0 Arterial Blood Date Drawn [id number] Arterial Blood pH 7.238 *L 7.350-7.450 Arterial Blood Partial Pressure CO2 14.4 *L 32.0-45.0 mmHg Arterial Blood Partial Pressure O2 105.6 83.0-108.0 mmHg Arterial Blood HCO3 6.0 L 21.0-28.0 mmol/L Arterial Blood Oxygen Saturation 97.9 94.0-98.0 % Arterial Blood Base Excess -18.7 L -2.0-3.0 mmol/L Arterial Blood Oxyhemoglobin 96.1 94.0-98.0 % Arterial Blood Carboxyhemoglobin 1.2 0.5-1.5 % Arterial Blood Methemoglobin 0.6 0.0-1.5 % Iván Test Yes Blood Gas Total Hemoglobin 14.10 12.0-16.0 g/dL Blood Gas Modality Room air FiO2 % 21.0 Blood Gas Critical Value Read Back Yes Blood Gas Notified Whom Danita martins. Blood Gas Notified Time [id number] Blood Gas Notified By Yasmany belcher Prothrombin Time 10.5 9.3-11.8 sec Prothrombin Time INR 0.99 0.9-1.15 Activated Partial Thromboplast Time 25.9 24.5-34.5 SEC D-Dimer, Quantitative 2.56 H 0.0-0.49 mg/L FEU Ammonia 52 H 11-32 umol/L Lactate Dehydrogenase 291 H 120-246 U/L B-Type Natriuretic Peptide 29.10 0-100 pg/mL Amylase Level 366 H 30-118 U/L Plasma/Serum Blood Alcohol < 3.0 <10 mg/dL Test 02/17/24 10:15 Range/Units Urine Color Yellow Yellow Urine Clarity Turbid H Clear Urine pH 6.0 5.0-9.0 Urine Specific [place] 1.018 1.001-1.035 Urine Protein 2+ H Negative Urine Ketones 4+ H Negative Urine Blood 1+ H Negative /uL Urine Nitrite Negative Negative Urine Bilirubin 1+ H Negative Urine Urobilinogen 4 H Negative mg/dL Urine Leukocyte Esterase Negative Negative /uL Urine RBC <1 0 - 4 /hpf Urine WBC 1 0 - 5 /hpf Urine Squamous Epithelial Cells Few <5 /hpf Urine Bacteria None seen None Seen /hpf Urine Hyaline Casts Many 0 - 2 /lpf Urine Mucus Few None Seen Urine Glucose Normal Normal mg/dL Urine Test Negative Negative Urine Opiates Screen Neg NEGATIVE Urine Fentanyl Screen Neg NEGATIVE Urine Barbiturates Screen Neg NEGATIVE Urine Phencyclidine Screen Neg NEGATIVE Urine Amphetamines Screen Neg NEGATIVE Urine Benzodiazepines Screen Neg NEGATIVE Urine Cocaine Screen Neg NEGATIVE Urine Cannabinoids Screen Neg NEGATIVE CT SCAN ABD PELVIS IMPRESSION: 1. There is moderate edema and fat stranding surrounding the pancreas compatible with acute pancreatitis. There is no discrete localized fluid collection or cyst. 2. Hepatic steatosis. Problems(with codes): (1) Alcohol abuse (2) Acute pancreatitis (3) Dehydration (4) Renal failure (5) Hypertension (6) MADELINE (acute kidney injury) (7) Hypokalemia (8) Metabolic acidosis (9) Elevated liver enzymes Plan/Recommendation Plan IV Protonix 40 mg daily Clear liquid diet Monitor labs Check hepatitis panel Patient was counseled about discontinuing alcohol Right upper quadrant ultrasound I will follow up patient with you Plan discussed with: Patient, Other (ER Nurse) KENJI PEDROZA MD Feb 18, 2024 22:14
[2024-02-19] VITALS (8 sets, daily range): BP systolic 133–149; BP diastolic 92–110; PULSE 88–102; RESP 16–18; TEMP 98.1–99.8; O2SAT 98–100
[2024-02-19 01:00] LABS: Chloride 105 mmol/L (98-107)
[2024-02-19 01:01] LABS: Anion Gap 6 (5-15); Calcium 9.3 mg/dL (8.7-10.4); Carbon Dioxide 24 mmol/L (20-31)
[2024-02-19 01:02] LABS: Potassium 2.9 mmol/L (3.5-5.1); Sodium 135 mmol/L (136-145)
--- NOTE | 2024-02-19 01:02 | DVH ---
ABDOMINAL ULTRASOUND CLINICAL HISTORY: elevated liver tests pancreatitis TECHNIQUE: Multiple grayscale and color Doppler ultrasound images were obtained of the abdomen. WID: COMPARISON: CT abdomen and pelvis from 02/17/2024 FINDINGS: Liver and Biliary System: Increased echogenicity, increased size measuring 19.95 cm. No focal hepa tic observations. No intrahepatic bile duct dilatation. The common duct measures 0.57 cm at the por ta hepatis. The gallbladder normal caliber without wall thickening or cholelithiasis.. Pancreas: Increased echogenicity in the setting of known pancreatitis. Kidneys: The right kidney is 11.6 cm . No hydronephrosis, increased echogenicity, shadowing stone, or focal lesion. IMPRESSION: 1. Hepatomegaly with diffuse hepatic steatosis. 2. No acute cholecystitis or cholelithiasis
[2024-02-19 01:06] LABS: Glucose 89 mg/dL (74-106)
[2024-02-19 01:07] LABS: Magnesium 1.7 mg/dL (1.6-2.6)
[2024-02-19 01:23] LABS: BUN/Creatinine Ratio 8.2 (10.0-20.0); Blood Urea Nitrogen < 5 mg/dL (9-23)
[2024-02-19 01:24] LABS: Phosphorus 1.1 mg/dL (2.4-5.1)
[2024-02-19 06:45] LABS: Basophils # (auto) 0 10 ^3/uL (0-0.2); Basophils % (auto) 0.3 % (0.0-2.0); Eosinophils # (auto) 0 10 ^3/uL (0-0.8); Hematocrit 28.2 % (36.0-46.0); Lymphocytes # (auto) 0.6 10 ^3/uL (0.4-5.4); Lymphocytes % (auto) 13.3 % (10.0-50.0); Mean Corpuscular Hemoglobin 29.4 pg (28.0-32.0); Mean Corpuscular Hgb Conc. 31.9 g/dL (32.0-36.0); Mean Corpuscular Volume 92.3 fL (80.0-100.0); Monocytes # (auto) 0.3 10 ^3/uL (0-1.3); Monocytes % (auto) 7.8 % (0.0-12.0); Neutrophils # (auto) 3.4 10 ^3/uL (1.6-8.6); Neutrophils % (auto) 77.6 % (37.0-80.0); Nucleated Red Blood Cells % 0.2 %; Platelet Count (auto) 80 10^3/uL (140-450); Red Blood Cells 3.05 10^6/uL (4.0-5.20); Red Cell Distribution Width 17.6 % (11.8-14.3); White Blood Cell 4.4 10^3/uL (4.4-10.8)
[2024-02-19 06:48] LABS: Alanine Aminotransferase 21 U/L (7-40); Albumin 3.7 g/dL (3.2-4.8); Alkaline Phosphatase 105 U/L (46-116); Anion Gap 8 (5-15); Calcium 8.9 mg/dL (8.7-10.4); Carbon Dioxide 23 mmol/L (20-31); Chloride 106 mmol/L (98-107); Glucose 90 mg/dL (74-106); Magnesium 1.8 mg/dL (1.6-2.6); Sodium 137 mmol/L (136-145)
[2024-02-19 06:49] LABS: Aspartate Aminotransferase 90 U/L (13-40); BUN/Creatinine Ratio 10.4 (10.0-20.0); Bilirubin, Total 1.2 mg/dL (0.2-1.0); Blood Urea Nitrogen < 5 mg/dL (9-23); Total Protein 6.1 g/dL (5.7-8.2)
[2024-02-19 06:54] LABS: Potassium 2.5 mmol/L (3.5-5.1)
[2024-02-19 06:58] LABS: Lipase 969 U/L (12-53)
[2024-02-19] MEDS: POTASSIUM CHL 20 Meq TABLET PO ONE (09:38)
[2024-02-19 13:05] LABS: Chloride 107 mmol/L (98-107); Sodium 137 mmol/L (136-145)
[2024-02-19 13:06] LABS: Anion Gap 9 (5-15); Calcium 8.9 mg/dL (8.7-10.4); Carbon Dioxide 21 mmol/L (20-31)
[2024-02-19 13:11] LABS: Glucose 90 mg/dL (74-106)
[2024-02-19 13:14] LABS: BUN/Creatinine Ratio 11.1 (10.0-20.0); Blood Urea Nitrogen < 5 mg/dL (9-23); Potassium 2.8 mmol/L (3.5-5.1)
[2024-02-19] MEDS: POTASSIUM PHOSPHATE 26.4 MEQ in SODIUM CHL 0.9% 100 ML IV ONE (14:15)
--- NOTE | 2024-02-19 14:23 | DVHSR ---
APPROVED REPORT EXAM: Two-dimensional and M-mode echocardiogram with Doppler and color Doppler. Blood Pressure: 126/92 mmHg INDICATION Hypertensive urgency RISK FACTORS Height: 5'4", Weight: 132 DIMENSIONS LVDd3.3 (3.8-5.7cm)LA (2D)3.5 (1.9-4.0cm)Aortic Root3.3 (2.0-3.7cm) LVDs2.3 (2.5-4.0cm)LA (MM) (1.9-4.0cm)Aortic Cusp Exc2.1 (1.5-2.0cm) EF (%) 60.0 (55-70%)Rt. Atrium3.4 (1.9-4.0cm)Asc. Aorta cm IVSd1.1 (0.7-1.1cm)RV (D) (1.8-2.4cm) PWd1.3 (0.7-1.1cm) Mitral Valve MitralMitral Stenosis E wave0.43m/sMV Mean GR.mmHg A wave0.69m/sMV Peak GR.mmHg E/A ratio0.62D MVAcm2 DECEL [id number] 1/2 Timems Aortic Valve Aortic ValveAortic Stenosis V10.78m/Jass Mean GR.3mmHg V21.10m/Jass Peak GR.5mmHg LVOT Diameter2.2 (1.8-2.4cm)Doppler AVA2.69cm2 Pulmonic Valve V20.60m/s Tricuspid Valve TR Velocity2.21m/s [id number] Conclusion Technically good study. Sinus rhythm. Concentric LVH. Valves are normal. 65% ejection fraction. Dopplers normal. No pericardial effusion masses or vegetations.
[2024-02-19] MEDS: FOLIC ACID 1 MG TAB PO ONE (15:12)
[2024-02-19] MEDS: MAGNESIUM OXIDE 400 MG TAB PO ONE (15:12)
[2024-02-19] MEDS: THIAMINE HCL 100 MG TAB PO ONE (15:12)
[2024-02-19] MEDS: MULTIPLE VITAMIN TAB PO ONE (15:12)
--- NOTE | 2024-02-19 15:57 | DVHPN2 ---
Progress Note - Dictate Date Seen: Feb 19, 2024 Medical Necessity Reason Pt with a Central, PICC or Fol: No Subjective No new complaints Patient tolerating clear liquid diet No further episodes of GI bleeding nausea or vomiting; hemoglobin down to 9.0 Three bowel movements recorded Echo results noted vital signs Vital Sign Date Time Temp Pulse Resp B/P (MAP) Pulse Ox O2 Delivery O2 Flow Rate FiO2 02/19/24 13:00 98.3 102 16 135/102 (113) 100 98.3 02/18/24 20:00 Room Air* 0 21 Total Intake and Output 02/18/24 02/18/24 02/19/24 15:00 23:00 07:00 Intake Total 285 ml 390 ml 2113.2 ml Balance 285 ml 390 ml 2113.2 ml medications Current Medications Medications Dose Ordered Sig/Artemio Route Start Time Stop Time Status Last Admin Dose Admin Sodium Chloride 1,000 ml @ 150 mls/hr Q6H40M IV 02/17/24 21:45 02/19/24 13:45 150 MLS/HR Metoclopramide HCl 10 mg Q4HP PRN IV 02/17/24 21:45 Acetaminophen 650 mg Q6HP PRN PO 02/17/24 21:45 02/18/24 22:22 650 MG Ondansetron HCl 4 mg Q4HP PRN IV 02/17/24 21:45 02/18/24 01:03 4 MG Morphine Sulfate 4 mg Q4HPRN PRN IV 02/17/24 21:45 02/18/24 01:04 4 MG Enoxaparin Sodium 40 mg DAILY SC 02/18/24 10:00 Nitroglycerin 0.4 mg Q5MINP PRN SL 02/17/24 21:45 Morphine Sulfate 2 mg Q30M PRN IV 02/17/24 21:45 Hydralazine HCl 10 mg Q4HP PRN IV 02/17/24 21:45 Lorazepam 1 mg Q4HPRN PRN IV 02/18/24 03:00 Folic Acid 1 mg DAILY PO 02/20/24 10:00 Multivitamins 1 tab DAILY PO 02/20/24 10:00 Magnesium Oxide 400 mg DAILY PO 02/20/24 10:00 Thiamine HCl 100 mg DAILY PO 02/20/24 10:00 objective General Appearance: Alert, Oriented X3, Cooperative, no distress HEENT: Atraumatic, PERRLA, EOMI Respiratory: Clear to auscultation, Normal air movement Cardiovascular: Normal S1, Normal S2, Other (Tachycardia) Abdominal: Normal bowel sounds, Soft, No tenderness Extremities: No clubbing, No cyanosis, No edema Skin: No rashes, No breakdown Neuro: Normal speech, Strength at 5/5 X4 ext Psych/Mental Status: Mental status NL, Mood NL laboratory and microbiology Laboratory Tests 02/19/24 12:15 02/19/24 05:49 Test 02/19/24 12:15 Range/Units Serum Glucose 90 74-106 mg/dL Problems(with codes): (1) Anemia (2) Elevated liver enzymes (3) Metabolic acidosis (4) Hypokalemia (5) Acute pancreatitis (6) MADELINE (acute kidney injury) (7) Dehydration Prognosis Plan IV Protonix 40 mg daily Clear liquid diet Monitor labs ; stool for occult blood Hepatitis panel pending, toxicology screen negative Patient was counseled about discontinuing alcohol Right upper quadrant ultrasound showed hepatomegaly and diffuse hepatic steatosis Repeat lipase level in a.m. Consider EGD in a.m. pending results I will follow up patient with you Plan discussed with: Patient KENJI PEDROZA MD Feb 19, 2024 15:57
--- NOTE | 2024-02-19 16:40 | DVHPN2 ---
Subjective Overnight events noted. Patient is complaining of minimal pain in the left upper quadrant. Reviewed: Care Plan Changes from previous H/P or p: No Changes Eyes: No Pain, No Vision change, No Conjunctivae inflammation, No Eyelid inflammation, No Other, No Redness ENT: No Ear pain, No Ear discharge, No Nose pain, No Nose discharge, No Nose congestion, No Mouth pain, No Mouth swelling, No Throat pain, No Throat swelling, No Other Cardiovascular: No Chest Pain, No Palpitations, No Orthopnea, No Paroxysmal Noc. Dyspnea, No Edema, No Lt Headedness, No Other Respiratory: No Cough, No Dry; Shortness of breath; No SOB with excertion, No Wheezing, No Hemoptysis, No Pleuritic Pain, No Sputum, No Other Gastrointestinal: Nausea, Vomiting, Abdominal Pain; No Diarrhea, No Constipation, No Melena, No Hematochezia, No Other Genitourinary: No Dysuria, No Frequency, No Incontinence, No Hematuria, No Retention, No Other Musculoskeletal: No other, No neck pain, No shoulder pain, No arm pain, No back pain, No hand pain, No leg pain, No foot pain Skin: No Rash, No Lesions, No Jaundice, No Bruising, No Other Objective Vitals Vital Signs Date Time Temp Pulse Resp B/P (MAP) Pulse Ox O2 Delivery O2 Flow Rate FiO2 02/19/24 13:00 98.3 102 16 135/102 (113) 100 98.3 02/18/24 20:00 Room Air* 0 21 Intake/Output Intake and Output 02/19/24 07:00 Intake Total 2788.2 ml Balance 2788.2 ml Intake Oral 440 ml IV Total 2348.2 ml # Voids 4 # Bowel Movements 3 Exam HEENT pupils are reactive Neck is supple CV is S1-S2 regular rate and rhythm Respiratory are clear GI positive bowel sounds soft nondistended mildly tender in the left upper quadrant with a minimal guarding no rigidity Extremity no edema POT SANDER no motor deficit Medications Current Medications Medications Dose Ordered Sig/Artemio Route Start Time Stop Time Status Last Admin Dose Admin Sodium Chloride 1,000 ml @ 150 mls/hr Q6H40M IV 02/17/24 21:45 02/19/24 13:45 150 MLS/HR Metoclopramide HCl 10 mg Q4HP PRN IV 02/17/24 21:45 Acetaminophen 650 mg Q6HP PRN PO 02/17/24 21:45 02/18/24 22:22 650 MG Ondansetron HCl 4 mg Q4HP PRN IV 02/17/24 21:45 02/18/24 01:03 4 MG Morphine Sulfate 4 mg Q4HPRN PRN IV 02/17/24 21:45 02/18/24 01:04 4 MG Enoxaparin Sodium 40 mg DAILY SC 02/18/24 10:00 Nitroglycerin 0.4 mg Q5MINP PRN SL 02/17/24 21:45 Morphine Sulfate 2 mg Q30M PRN IV 02/17/24 21:45 Hydralazine HCl 10 mg Q4HP PRN IV 02/17/24 21:45 Lorazepam 1 mg Q4HPRN PRN IV 02/18/24 03:00 Folic Acid 1 mg DAILY PO 02/20/24 10:00 Multivitamins 1 tab DAILY PO 02/20/24 10:00 Magnesium Oxide 400 mg DAILY PO 02/20/24 10:00 Thiamine HCl 100 mg DAILY PO 02/20/24 10:00 Laboratory Results Laboratory Tests 02/19/24 05:49 02/19/24 12:15 Chemistry Test 02/18/24 18:53 02/19/24 00:24 02/19/24 05:49 02/19/24 12:15 Calcium Level 9.8 mg/dL (8.7-10.4) 9.3 mg/dL (8.7-10.4) 8.9 mg/dL (8.7-10.4) 8.9 mg/dL (8.7-10.4) Magnesium Level 1.5 mg/dL (1.6-2.6) L 1.7 mg/dL (1.6-2.6) 1.8 mg/dL (1.6-2.6) Phosphorus Level 0.6 mg/dL (2.4-5.1) L 1.1 mg/dL (2.4-5.1) L 1.0 mg/dL (2.4-5.1) L Albumin 3.7 g/dL (3.2-4.8) Total Protein 6.1 g/dL (5.7-8.2) Lipid panel Test 02/19/24 05:49 Lipase 969 U/L (12-53) H LFT Test 02/19/24 05:49 Alanine Aminotransferase (ALT) 21 U/L (7-40) Alkaline Phosphatase 105 U/L (46-116) Aspartate Amino Transferase (AST) 90 U/L (13-40) H Total Bilirubin 1.2 mg/dL (0.2-1.0) H Urinalysis Test 02/17/24 10:15 Urine Color Yellow (Yellow) Urine Clarity Turbid (Clear) H Urine pH 6.0 (5.0-9.0) Urine Specific [place] 1.018 (1.001-1.035) Urine Protein 2+ (Negative) H Urine Ketones 4+ (Negative) H Urine Blood 1+ /uL (Negative) H Urine Nitrite Negative (Negative) Urine Bilirubin 1+ (Negative) H Urine Urobilinogen 4 mg/dL (Negative) H Urine Leukocyte Esterase Negative /uL (Negative) Urine RBC <1 /hpf (0 - 4) Urine WBC 1 /hpf (0 - 5) Urine Squamous Epithelial Cells Few /hpf (<5) Urine Bacteria None seen /hpf (None Seen) Urine Hyaline Casts Many /lpf (0 - 2) Urine Mucus Few (None Seen) Urine Glucose Normal mg/dL (Normal) Urine Test Negative (Negative) Assessment/Plan Assessment/Plan 43-year-old female who initially presented to the hospital with abdominal pain nausea vomiting found to have 1. Acute alcohol-induced pancreatitis 2. Transaminitis 3. Severe metabolic acidosis secondary to nausea vomiting 4. Hypophosphatemia 5. Hypokalemia -replace electrolytes, repeat labs in the morning, discharge plan. Plan discussed with: Patient My Orders Orders - BRITTANY HEADLEY MD Procedure Category Date Status Time Potassium Phosphate PHA 02/19/24 In Process 14:15 Date of Service: Feb 19, 2024 Billing Provider: BRITTANY HEADLEY MD Common Visit Codes: NOT BILLABLE BRITTANY HEADLEY MD Feb 19, 2024 16:39
--- NOTE | 2024-02-19 17:54 | DVHINCON2 ---
DATE OF CONSULTATION: 02/18/2024 REFERRING PHYSICIAN: Dr. Burroughs. CONSULTING PHYSICIAN: Dr. Chan. INDICATION: Hypertensive urgency. HISTORY OF PRESENT ILLNESS: The patient is a 43-year-old female with history of hypertension, initially presented to the hospital with complaints of abdominal pain, nausea and vomiting. On presentation her blood pressure was markedly elevated, systolic in the 200 range. At the time of my evaluation, her blood pressure was better controlled, systolic in the 140-150 range. The patient has not been compliant with home medication. PAST MEDICAL HISTORY: Hypertension. MEDICATIONS: Per med rec. ALLERGIES: LISINOPRIL. PHYSICAL EXAMINATION: GENERAL: Alert and awake, in no form of cardiopulmonary distress. VITAL SIGNS: Blood pressure 130/90, pulse 91, saturation 99%. HEENT: No carotid bruits. No jugular venous distention. CHEST: Bilateral air entry. CARDIOVASCULAR: Precordial and carotid pulses palpable. Normal S1, S2. Regular rate and rhythm. No appreciable gallops or rubs. EXTREMITIES: No peripheral edema. DIAGNOSTIC DATA: White count 8, hemoglobin 12, platelets 209. Sodium 133, potassium 3.2, creatinine 0.7, magnesium is 1.5. Troponin is negative x3. ASSESSMENT: * Abdominal pain, nausea, vomiting. * Hypertensive urgency. * Hypokalemia. * Hypomagnesemia. * Metabolic acidosis. RECOMMENDATIONS: * Currently, the patient is off nicardipine drip. * If blood pressure remains uncontrolled, add calcium channel michelle, amlodipine. * Supplement potassium. * Supplement magnesium. * Monitor electrolytes closely. * We will review echo once completed. * Continue telemetry monitoring. Thank you for allowing me to participate in the care of this patient. MD GATO Galindo/JUSTIN/PATRICK TID: [id number] RECEIPT: [id number]
[2024-02-20] VITALS (8 sets, daily range): BP systolic 138–165; BP diastolic 91–111; PULSE 87–111; RESP 17–19; TEMP 98.5–99.6; O2SAT 96–100
[2024-02-20 07:16] LABS: Basophils # (auto) 0 10 ^3/uL (0-0.2); Basophils % (auto) 0.6 % (0.0-2.0); Eosinophils # (auto) 0.1 10 ^3/uL (0-0.8); Eosinophils % (auto) 1.7 % (0.0-7.0); Hematocrit 27.4 % (36.0-46.0); Hemoglobin 8.8 g/dL (12.2-16.2); Lymphocytes # (auto) 0.9 10 ^3/uL (0.4-5.4); Lymphocytes % (auto) 19.2 % (10.0-50.0); Mean Corpuscular Hemoglobin 29.5 pg (28.0-32.0); Mean Corpuscular Hgb Conc. 31.9 g/dL (32.0-36.0); Mean Corpuscular Volume 92.4 fL (80.0-100.0); Monocytes # (auto) 0.4 10 ^3/uL (0-1.3); Neutrophils # (auto) 3.2 10 ^3/uL (1.6-8.6); Neutrophils % (auto) 69.5 % (37.0-80.0); Platelet Count (auto) 111 10^3/uL (140-450); Red Blood Cells 2.97 10^6/uL (4.0-5.20); Red Cell Distribution Width 17.3 % (11.8-14.3); White Blood Cell 4.5 10^3/uL (4.4-10.8)
[2024-02-20] MEDS ORDERED: LIDOCAINE VISCOUS 2% 15ML UD ONE (08:13)
[2024-02-20] MEDS ORDERED: MIDAZOLAM HCL 5 MG/ML-1ML VIAL ONE (08:13)
[2024-02-20] MEDS ORDERED: SODIUM CHLORIDE LOCK 0 ML ONE (08:13)
[2024-02-20] MEDS ORDERED: fentaNYL CITRATE 100 MCG/2 ML VL ONE (08:14)
[2024-02-20] MEDS ORDERED: diphenhdrAMINE HCL 50 MG/1 ML VL ONE (08:14)
[2024-02-20 08:15] LABS: Alanine Aminotransferase 24 U/L (7-40); Albumin 3.7 g/dL (3.2-4.8); Alkaline Phosphatase 105 U/L (46-116); Amylase 344 U/L (30-118); Anion Gap 11 (5-15); Aspartate Aminotransferase 82 U/L (13-40); BUN/Creatinine Ratio 13.5 (10.0-20.0); Bilirubin, Total 0.7 mg/dL (0.2-1.0); Blood Urea Nitrogen < 5 mg/dL (9-23); Calcium 8.9 mg/dL (8.7-10.4); Carbon Dioxide 20 mmol/L (20-31); Chloride 109 mmol/L (98-107); Glucose 88 mg/dL (74-106); Magnesium 1.4 mg/dL (1.6-2.6); Sodium 140 mmol/L (136-145)
[2024-02-20 08:17] LABS: Phosphorus 1.3 mg/dL (2.4-5.1)
[2024-02-20 08:18] LABS: Potassium 2.2 mmol/L (3.5-5.1)
[2024-02-20 09:11] LABS: Lipase 1108 U/L (12-53)
[2024-02-20] MEDS: FOLIC ACID 1 MG TAB PO SCH (09:42)
[2024-02-20] MEDS: MAGNESIUM OXIDE 400 MG TAB PO SCH (09:42)
[2024-02-20] MEDS: MULTIPLE VITAMIN TAB PO SCH (09:42)
[2024-02-20] MEDS: THIAMINE HCL 100 MG TAB PO SCH (09:42)
[2024-02-20 09:46] LABS: Hepatitis B Core Total AB Negative (Negative)
[2024-02-20] MEDS: POTASSIUM CHL 20 Meq TABLET PO ONE (10:00)
[2024-02-20] MEDS: POTASSIUM CHLORIDE 60 MEQ, LIDOCAINE 1% (LOCAL ANESTH.) 6 ML in SODIUM CHL 0.9% 500 ML IV ONE (12:30)
[2024-02-20] MEDS: hydrALAZINE HCL 20 MG/ML VL IV PRN (14:11)
[2024-02-20 14:23] LABS: Hepatitis A Total Antibody Negative (Negative); Hepatitis B Surface Antibody Negative (Negative); Hepatitis B Surface Antigen Negative (Negative); Hepatitis C Antibody Negative (Negative)
[2024-02-20] MEDS ORDERED: NEUTRA-PHOS TABLET PO ONE (15:15)
--- NOTE | 2024-02-20 16:59 | DVHPN2 ---
Subjective Overnight events noted. Patient is going for EGD tomorrow. Reviewed: Care Plan Changes from previous H/P or p: No Changes Eyes: No Pain, No Vision change, No Conjunctivae inflammation, No Eyelid inflammation, No Other, No Redness ENT: No Ear pain, No Ear discharge, No Nose pain, No Nose discharge, No Nose congestion, No Mouth pain, No Mouth swelling, No Throat pain, No Throat swelling, No Other Cardiovascular: No Chest Pain, No Palpitations, No Orthopnea, No Paroxysmal Noc. Dyspnea, No Edema, No Lt Headedness, No Other Respiratory: No Cough, No Dry; Shortness of breath; No SOB with excertion, No Wheezing, No Hemoptysis, No Pleuritic Pain, No Sputum, No Other Gastrointestinal: Nausea, Vomiting, Abdominal Pain; No Diarrhea, No Constipation, No Melena, No Hematochezia, No Other Genitourinary: No Dysuria, No Frequency, No Incontinence, No Hematuria, No Retention, No Other Musculoskeletal: No other, No neck pain, No shoulder pain, No arm pain, No back pain, No hand pain, No leg pain, No foot pain Skin: No Rash, No Lesions, No Jaundice, No Bruising, No Other Objective Vitals Vital Signs Date Time Temp Pulse Resp B/P (MAP) Pulse Ox O2 Delivery O2 Flow Rate FiO2 02/20/24 14:11 162/113 02/20/24 13:00 98.5 97 17 96 98.5 02/20/24 08:00 Room Air* 0 21 Intake/Output Intake and Output 02/20/24 07:00 Intake Total 2325 ml Balance 2325 ml Intake Oral 1325 ml IV Total 1000 ml # Voids 12 # Bowel Movements 8 Exam HEENT pupils are reactive Neck is supple CV is S1-S2 regular rate and rhythm Respiratory are clear GI positive bowel sounds soft nondistended mildly tender in the left upper quadrant with a minimal guarding no rigidity Extremity no edema [employer] no motor deficit Medications Current Medications Medications Dose Ordered Sig/Artemio Route Start Time Stop Time Status Last Admin Dose Admin Sodium Chloride 1,000 ml @ 150 mls/hr Q6H40M IV 02/17/24 21:45 02/20/24 12:30 150 MLS/HR Metoclopramide HCl 10 mg Q4HP PRN IV 02/17/24 21:45 Acetaminophen 650 mg Q6HP PRN PO 02/17/24 21:45 02/18/24 22:22 650 MG Ondansetron HCl 4 mg Q4HP PRN IV 02/17/24 21:45 02/18/24 01:03 4 MG Morphine Sulfate 4 mg Q4HPRN PRN IV 02/17/24 21:45 02/18/24 01:04 4 MG Enoxaparin Sodium 40 mg DAILY SC 02/18/24 10:00 Nitroglycerin 0.4 mg Q5MINP PRN SL 02/17/24 21:45 Morphine Sulfate 2 mg Q30M PRN IV 02/17/24 21:45 Hydralazine HCl 10 mg Q4HP PRN IV 02/17/24 21:45 02/20/24 14:11 10 MG Lorazepam 1 mg Q4HPRN PRN IV 02/18/24 03:00 Folic Acid 1 mg DAILY PO 02/20/24 10:00 Multivitamins 1 tab DAILY PO 02/20/24 10:00 Magnesium Oxide 400 mg DAILY PO 02/20/24 10:00 Thiamine HCl 100 mg DAILY PO 02/20/24 10:00 Magnesium Sulfate/ Dextrose 100 ml @ 100 mls/hr Q1H IV 02/20/24 15:15 02/20/24 18:14 Sodium Phosphate 1 tab TIDWM PO 02/20/24 18:00 Laboratory Results Laboratory Tests 02/20/24 05:52 Chemistry Test 02/20/24 05:52 Albumin 3.7 g/dL (3.2-4.8) Calcium Level 8.9 mg/dL (8.7-10.4) Magnesium Level 1.4 mg/dL (1.6-2.6) L Phosphorus Level 1.3 mg/dL (2.4-5.1) L Total Protein 6.0 g/dL (5.7-8.2) Lipid panel Test 02/20/24 05:52 Lipase 1108 U/L (12-53) H LFT Test 02/20/24 05:52 Alanine Aminotransferase (ALT) 24 U/L (7-40) Alkaline Phosphatase 105 U/L (46-116) Aspartate Amino Transferase (AST) 82 U/L (13-40) H Total Bilirubin 0.7 mg/dL (0.2-1.0) Urinalysis Test 02/17/24 10:15 Urine Color Yellow (Yellow) Urine Clarity Turbid (Clear) H Urine pH 6.0 (5.0-9.0) Urine Specific [place] 1.018 (1.001-1.035) Urine Protein 2+ (Negative) H Urine Ketones 4+ (Negative) H Urine Blood 1+ /uL (Negative) H Urine Nitrite Negative (Negative) Urine Bilirubin 1+ (Negative) H Urine Urobilinogen 4 mg/dL (Negative) H Urine Leukocyte Esterase Negative /uL (Negative) Urine RBC <1 /hpf (0 - 4) Urine WBC 1 /hpf (0 - 5) Urine Squamous Epithelial Cells Few /hpf (<5) Urine Bacteria None seen /hpf (None Seen) Urine Hyaline Casts Many /lpf (0 - 2) Urine Mucus Few (None Seen) Urine Glucose Normal mg/dL (Normal) Urine Test Negative (Negative) Assessment/Plan Assessment/Plan 43-year-old female who initially presented to the hospital with abdominal pain nausea vomiting found to have 1. Acute alcohol-induced pancreatitis , resolving 2. Transaminitis 3. Severe metabolic acidosis secondary to nausea vomiting, resolved 4. Hypophosphatemia and hypomagnesemia 5. Hypokalemia 6. Acute drop in hemoglobin without any active evidence of bleeding -patient is scheduled for EGD tomorrow -replace electrolytes, repeat labs in the morning, discharge plan. Plan discussed with: Patient My Orders Orders - BRITTANY HEADLEY MD Procedure Category Date Status Time Magnesium Sulfate PHA 02/20/24 In Process 1gm/100ml 15:15 Potassium Phosphate PHA 02/20/24 In Process 15:15 Pota Phos & Sod Phos PHA 02/20/24 In Process Tablet (Neutra-Phos 18:00 Complete Blood Count LAB 02/21/24 Verified 04:00 Basic Metabolic Panel LAB 02/21/24 Verified 04:00 Magnesium LAB 02/21/24 Verified 04:00 Date of Service: Feb 20, 2024 Billing Provider: BRITTANY HEADLEY MD Common Visit Codes: NOT BILLABLE BRITTANY HEADLEY MD Feb 20, 2024 16:59
[2024-02-20] MEDS: MAGNESIUM SULFATE 1GM/100ML 100 ML IV SCH (17:16)
--- NOTE | 2024-02-20 17:40 | DVHPN2 ---
Progress Note Date Seen: Feb 20, 2024 Resident Creating Document: CHEY KANG RESIDENT Medical Necessity Reason Pt with a Central, PICC or Fol: No Medical Necessity Reason Anemia Hgb: 9--> 8.8 hypokalemia: 2.2 Subjective Review of Systems Patient seen and examined today. She has no new complaint. Patient was scheduled to have an EGD done today; however her potassium level was extremely low at 2.2. Therefore, her EGD was cancelled. Plan is to replenish potassium to optimal level and then patient will be taken for EGD. We will monitor her potassium closely. No further episodes of GI bleeding nausea or vomiting; hemoglobin from 9.0--> 8.8 Objective vital signs Vital Sign Date Time Temp Pulse Resp B/P (MAP) Pulse Ox O2 Delivery O2 Flow Rate FiO2 02/20/24 17:00 98.6 103 19 165/108 (127) 98 98.6 02/20/24 08:00 Room Air* 0 21 Total Intake and Output 02/19/24 02/19/24 02/20/24 15:00 23:00 07:00 Intake Total 1025 ml 1300 ml Balance 1025 ml 1300 ml medications Current Medications Medications Dose Ordered Sig/Artemio Route Start Time Stop Time Status Last Admin Dose Admin Sodium Chloride 1,000 ml @ 150 mls/hr Q6H40M IV 02/17/24 21:45 02/20/24 12:30 150 MLS/HR Metoclopramide HCl 10 mg Q4HP PRN IV 02/17/24 21:45 Acetaminophen 650 mg Q6HP PRN PO 02/17/24 21:45 02/18/24 22:22 650 MG Ondansetron HCl 4 mg Q4HP PRN IV 02/17/24 21:45 02/18/24 01:03 4 MG Morphine Sulfate 4 mg Q4HPRN PRN IV 02/17/24 21:45 02/18/24 01:04 4 MG Enoxaparin Sodium 40 mg DAILY SC 02/18/24 10:00 Nitroglycerin 0.4 mg Q5MINP PRN SL 02/17/24 21:45 Morphine Sulfate 2 mg Q30M PRN IV 02/17/24 21:45 Hydralazine HCl 10 mg Q4HP PRN IV 02/17/24 21:45 02/20/24 14:11 10 MG Lorazepam 1 mg Q4HPRN PRN IV 02/18/24 03:00 Folic Acid 1 mg DAILY PO 02/20/24 10:00 Multivitamins 1 tab DAILY PO 02/20/24 10:00 Magnesium Oxide 400 mg DAILY PO 02/20/24 10:00 Thiamine HCl 100 mg DAILY PO 02/20/24 10:00 Magnesium Sulfate/ Dextrose 100 ml @ 100 mls/hr Q1H IV 02/20/24 15:15 02/20/24 18:14 02/20/24 17:16 100 MLS/HR Sodium Phosphate 1 tab TIDWM PO 02/20/24 18:00 Examination General examination- Not in acute distress HEENT: PEERLA, no acute nasal discharge Chest: S1-S2 audible, rate and rhythm regular, no murmur Lung: CTAB, no wheeze or rhonchi Abdomen: Nondistend, BS+, nontenderness, no organomegaly Musculoskeletal: no acute joint swelling or tenderness Lower extremity: no leg edema Neurological: cranial nerves intact, no acute dysarthria or dysphagia Psychiatry-- Normal mood and affect Skin- no acute rash or purpura laboratory and microbiology Laboratory Tests 02/20/24 05:52 Test 02/20/24 05:52 Range/Units Serum Glucose 88 74-106 mg/dL Problem List/Assessment/Plan Problem List/Assessment/Plan (1) Anemia, EGD today cancelled due to extremely low K: 2.2 (2) Elevated liver enzymes (3) Metabolic acidosis (4) Hypokalemia 2.2 (5) Acute pancreatitis (6) MADELINE (acute kidney injury) (7) Dehydration Plan Continue IV Protonix 40 mg daily Clear liquid diet Monitor labs; stool for occult blood Hepatitis panel pending, toxicology screen negative Patient was counseled about discontinuing alcohol Right upper quadrant ultrasound showed hepatomegaly and diffuse hepatic steatosis Thank you for allowing us to participate in the care of this patient. Please call if you have any questions or concerns. Plan discussed with: Patient CHEY KANG RESIDENT Feb 20, 2024 17:40
[2024-02-20] MEDS: NEUTRA-PHOS TABLET PO SCH (18:51)
[2024-02-20] MEDS: POTASSIUM PHOSPHATE 26.4 MEQ in SODIUM CHL 0.9% 100 ML IV ONE (19:05)
[2024-02-21] VITALS (7 sets, daily range): BP systolic 153–167; BP diastolic 100–110; PULSE 55–103; RESP 15–28; TEMP 97.8–98.7; O2SAT 94–100
[2024-02-21 07:17] LABS: Sodium 139 mmol/L (136-145)
[2024-02-21 07:18] LABS: Anion Gap 10 (5-15); Calcium 9.5 mg/dL (8.7-10.4)
[2024-02-21 07:20] LABS: Basophils # (auto) 0 10 ^3/uL (0-0.2); Basophils % (auto) 0.4 % (0.0-2.0); Eosinophils # (auto) 0.1 10 ^3/uL (0-0.8); Eosinophils % (auto) 1.9 % (0.0-7.0); Hematocrit 28.6 % (36.0-46.0); Hemoglobin 9.2 g/dL (12.2-16.2); Lymphocytes # (auto) 0.8 10 ^3/uL (0.4-5.4); Lymphocytes % (auto) 15.4 % (10.0-50.0); Mean Corpuscular Hemoglobin 29.7 pg (28.0-32.0); Mean Corpuscular Hgb Conc. 32.2 g/dL (32.0-36.0); Mean Corpuscular Volume 92.1 fL (80.0-100.0); Monocytes # (auto) 0.8 10 ^3/uL (0-1.3); Monocytes % (auto) 14.9 % (0.0-12.0); Neutrophils # (auto) 3.5 10 ^3/uL (1.6-8.6); Neutrophils % (auto) 67.4 % (37.0-80.0); Nucleated Red Blood Cells % 0.2 %; Platelet Count (auto) 158 10^3/uL (140-450); Red Blood Cells 3.11 10^6/uL (4.0-5.20); Red Cell Distribution Width 17.7 % (11.8-14.3); White Blood Cell 5.2 10^3/uL (4.4-10.8)
[2024-02-21 07:23] LABS: Glucose 90 mg/dL (74-106)
[2024-02-21 07:24] LABS: Magnesium 1.8 mg/dL (1.6-2.6)
[2024-02-21 07:26] LABS: BUN/Creatinine Ratio 12.5 (10.0-20.0); Blood Urea Nitrogen < 5 mg/dL (9-23); Carbon Dioxide 19 mmol/L (20-31); Chloride 110 mmol/L (98-107); Potassium 2.7 mmol/L (3.5-5.1)
[2024-02-21 07:41] LABS: Lipase 1025 U/L (12-53)
[2024-02-21] MEDS: POTASSIUM CHLORIDE 60 MEQ, LIDOCAINE 1% (LOCAL ANESTH.) 6 ML in SODIUM CHL 0.9% 500 ML IV ONE (09:46)
[2024-02-21] MEDS ORDERED: PROPOFOL 10 MG/ML 20 ML IV ONE (10:48)
[2024-02-21] MEDS ORDERED: LIDOCAINE 2% (LOCAL ANESTH.) PF 5ml SDV ONE (10:48)
[2024-02-21] MEDS ORDERED: POTASSIUM CHLORIDE 60 MEQ, LIDOCAINE 1% (LOCAL ANESTH.) 6 ML in SODIUM CHL 0.9% 500 ML IV ONE (11:00)
[2024-02-21] MEDS ORDERED: KETAMINE 50mg/ML 10ml Vial 10 ML ONE (11:13)
[2024-02-21] MEDS ORDERED: MIDAZOLAM HCL 2MG/2ML 2ml VIAL (1mg/ml) ONE (11:14)
[2024-02-21] MEDS ORDERED: ALBUTEROL SULF 2.5 MG/0.5ML(0.5%) NEB SOLN NEB STA (11:20)
[2024-02-21] MEDS ORDERED: EPINEPHrine HCL 0.5 ML NEB NEB ONE (11:30)
[2024-02-21] MEDS ORDERED: IPRATROPIUM BROM 0.5 MG/2.5ML INH SOL NEB PRN (11:30)
[2024-02-21] MEDS: IPRATROPIUM BROM 0.5 MG/2.5ML INH SOL ONE (11:30)
[2024-02-21] MEDS: ALBUTEROL SULF 2.5 MG/0.5ML(0.5%) NEB SOLN ONE (11:30)
--- NOTE | 2024-02-21 11:34 | DVHOP2 ---
Operative Report DATE OF OPERATION: 02/21/24 PROCEDURE: Upper Endoscopy with biopsy. PREOPERATIVE INDICATION: The patient is a 43 -year-old female undergoing endoscopy for upper GI bleed and drop in hemoglobin hematocrit POSTOPERATIVE DIAGNOSES: 1. Patient had a tight web at the proximal esophagus which was auto dilated with the endoscope 2. 1-2 cm sliding-type hiatal hernia with grade A erosive esophagitis 3. Moderate gastroduodenitis with multiple superficial gastric and duodenal ulcers and erosions 4. Otherwise normal examination up to the 2nd and 3rd part of the duodenal with no active bleeding at this time except for oozing from biopsy sites PROCEDURE PERFORMED BY: Kenji Frazier GI NURSE: Mirna SCOPE: Olympus videoendoscope. ASA CLASS: 3. PREOPERATIVE MEDICATIONS: Dr. Thad Oviedo PROCEDURE IN DETAIL: After obtaining an informed consent, the patient was placed on left lateral decubitus position. The patient was then sedated with the above medications. A bite block was placed between her teeth. The endoscope was then passed into the esophagus. Patient had a tight web just below the upper esophageal sphincter area through which the endoscope passed through with slight resistance with auto dilation of the web. The endoscope was then passed into the esophagus, and through the stomach and pylorus up to the second and third part of the duodenum. The endoscope was then withdrawn. The 2nd and 3rd part of the duodenal were normal. Duodenal bulb and postbulbar area showed moderate duodenitis with superficial erosions and tiny ulcers. The pre-pyloric area and antrum also showed [id number] gastritis with pre-pyloric antral gastric erosions. On retroflexion the fundus cardia and angularis were normal. Patient had a 1-2 cm sliding-type hiatal hernia with grade a erosive esophagitis The remaining distal and proximal esophagus and oropharynx were unremarkable. There was minimal oozing from the site of the web dilation. I was only able to obtain gastric biopsies on this procedure because patient developed bronchospasm which resolved with aspiration and oxygen supplementation The patient was stable at the end of the procedure. COMPLICATIONS : None SPECIMENS: Gastric biopsies DISPOSITION: Transfer back to the floor Stable PLAN: 1. Await for biopsy result 2. Will place pt on Protonix 40 mg IV q.12 hours 3. Continue NPO status except for ice chips for another 12-24 hours 4. Patient can then subsequently be started on a clear liquid diet 5. Patient will be given a nebulizer treatment in the postop area and on the floor as needed 6. Monitor labs and transfuse 1 unit PRBC if hemoglobin drops below seven 7. Start IV iron supplementation 8. DC aspirin NSAIDs smoking alcohol 9. Patient will follow up in my office upon discharge for ongoing GI management KENJI FRAZIER MD Feb 21, 2024 11:34
[2024-02-21] MEDS: EPINEPHrine HCL 0.5 ML NEB ONE (11:42)
[2024-02-21] MEDS ORDERED: fentaNYL CITRATE 100 MCG/2 ML VL IV PRN (11:45)
[2024-02-21] MEDS ORDERED: FAMOTIDINE INJECTION 40 MG in SODIUM CHL 0.9% 100 ML IV ONE (11:45)
[2024-02-21] MEDS ORDERED: ONDANSETRON HCL 4 MG/2 ML VIAL IV ONE (11:45)
--- NOTE | 2024-02-21 12:31 | DVHPN2 ---
Progress Note - Dictate Date Seen: Feb 21, 2024 Medical Necessity Reason Pt with a Central, PICC or Fol: No Subjective Patient is scheduled to undergo EGD. Her electrolytes being corrected. vital signs Vital Sign Date Time Temp Pulse Resp B/P (MAP) Pulse Ox O2 Delivery O2 Flow Rate FiO2 02/21/24 11:30 95 Mask 10.0 02/21/24 11:30 103 28 02/21/24 11:30 99 02/21/24 09:00 98.2 159/109 (126) 98.2 Total Intake and Output 02/20/24 02/20/24 02/21/24 15:00 23:00 07:00 Intake Total 1000 ml 1058 ml 500 ml Balance 1000 ml 1058 ml 500 ml medications Current Medications Medications Dose Ordered Sig/Artemio Route Start Time Stop Time Status Last Admin Dose Admin Sodium Chloride 1,000 ml @ 150 mls/hr Q6H40M IV 02/17/24 21:45 02/21/24 05:45 150 MLS/HR Metoclopramide HCl 10 mg Q4HP PRN IV 02/17/24 21:45 Acetaminophen 650 mg Q6HP PRN PO 02/17/24 21:45 02/18/24 22:22 650 MG Ondansetron HCl 4 mg Q4HP PRN IV 02/17/24 21:45 02/18/24 01:03 4 MG Morphine Sulfate 4 mg Q4HPRN PRN IV 02/17/24 21:45 02/18/24 01:04 4 MG Enoxaparin Sodium 40 mg DAILY SC 02/18/24 10:00 Nitroglycerin 0.4 mg Q5MINP PRN SL 02/17/24 21:45 Morphine Sulfate 2 mg Q30M PRN IV 02/17/24 21:45 Hydralazine HCl 10 mg Q4HP PRN IV 02/17/24 21:45 02/20/24 14:11 10 MG Lorazepam 1 mg Q4HPRN PRN IV 02/18/24 03:00 Folic Acid 1 mg DAILY PO 02/20/24 10:00 Multivitamins 1 tab DAILY PO 02/20/24 10:00 Magnesium Oxide 400 mg DAILY PO 02/20/24 10:00 Thiamine HCl 100 mg DAILY PO 02/20/24 10:00 Sodium Phosphate 1 tab TIDWM PO 02/20/24 18:00 02/20/24 18:51 1 TAB Albuterol 2.5 mg STAT STAT NEB 02/21/24 11:20 02/21/24 11:21 UNV Ipratropium [place] 0.5 mg Q4HP PRN NEB 02/21/24 11:30 UNV Fentanyl Citrate 25 mcg Q1HP PRN IV 02/21/24 11:45 02/21/24 11:46 UNV Pantoprazole Sodium 40 mg BID IV 02/21/24 22:00 UNV Sucralfate 1 gm QID@0600,1130,1700,2200 PO 02/21/24 17:00 UNV objective Patient is not in her room and taken down to EGD procedure. laboratory and microbiology Laboratory Tests 02/21/24 06:00 Test 02/21/24 06:00 Range/Units Serum Glucose 90 74-106 mg/dL Assessment/Plan Ketoacidosis resolved. Lipase is mildly elevated. We will follow the lipase levels. Replace potassium magnesium phosphorus as needed. Proceed with the EGD today. Otherwise further clinical management per postop recovery and clinical course. Problems(with codes): (1) Anemia (2) Elevated liver enzymes (3) Hypokalemia (4) Acute pancreatitis (5) Acidosis due to type 1 diabetes mellitus Plan discussed with: Other SOLA MARR MD Feb 21, 2024 12:31
[2024-02-21] MEDS: SUCRALFATE 1 GM/10 ML ORAL SUSP PO SCH (17:00)
[2024-02-21 19:01] LABS: Potassium 3.9 mmol/L (3.5-5.1)
[2024-02-21 19:08] LABS: Magnesium 1.9 mg/dL (1.6-2.6)
[2024-02-21] MEDS ORDERED: PANTOPRAZOLE 40 MG/10 ML VIAL INJ IV SCH (22:00)
--- NOTE | 2024-02-28 12:23 | DVHDS2 ---
Discharge Summary Date of Admission Feb 17, 2024 at 21:40 Date of Discharge: Feb 21, 2024 Labs/Diagnostic Data: Laboratory Results Test 02/21/24 18:45 02/21/24 09:33 02/21/24 06:00 02/20/24 05:52 Potassium Level 3.9 mmol/L (3.5-5.1) Magnesium Level 1.9 mg/dL (1.6-2.6) Blood Gas Specimen Type Arterial Blood Gas Sample Site Right radial Blood Gas Patient Temperature 37.0 Arterial Blood Date Drawn [id number] Arterial Blood pH 7.488 (7.350-7.450) Arterial Blood Partial Pressure CO2 21.4 mmHg (32.0-45.0) Arterial Blood Partial Pressure O2 92.5 mmHg (83.0-108.0) Arterial Blood HCO3 15.9 mmol/L (21.0-28.0) Arterial Blood Oxygen Saturation 97.3 % (94.0-98.0) Arterial Blood Base Excess -6.0 mmol/L (-2.0-3.0) Arterial Blood Oxyhemoglobin 96.6 % (94.0-98.0) Arterial Blood Carboxyhemoglobin 0.4 % (0.5-1.5) Arterial Blood Methemoglobin 0.3 % (0.0-1.5) Iván Test Yes Blood Gas Total Hemoglobin 9.90 g/dL (12.0-16.0) Blood Gas Modality Room air FiO2 % 21.0 White Blood Count 5.2 10^3/uL (4.4-10.8) Red Blood Count 3.11 10^6/uL (4.0-5.20) Hemoglobin 9.2 g/dL (12.2-16.2) Hematocrit 28.6 % (36.0-46.0) Mean Corpuscular Volume 92.1 fL (80.0-100.0) Mean Corpuscular Hemoglobin 29.7 pg (28.0-32.0) Mean Corpuscular Hemoglobin Concent 32.2 g/dL (32.0-36.0) Red Cell Distribution Width 17.7 % (11.8-14.3) Platelet Count 158 10^3/uL (140-450) Mean Platelet Volume 9.8 fL (6.9-10.8) Neutrophils (%) (Auto) 67.4 % (37.0-80.0) Lymphocytes (%) (Auto) 15.4 % (10.0-50.0) Monocytes (%) (Auto) 14.9 % (0.0-12.0) Eosinophils (%) (Auto) 1.9 % (0.0-7.0) Basophils (%) (Auto) 0.4 % (0.0-2.0) Neutrophils # (Auto) 3.5 10 ^3/uL (1.6-8.6) Lymphocytes # (Auto) 0.8 10 ^3/uL (0.4-5.4) Monocytes # (Auto) 0.8 10 ^3/uL (0-1.3) Eosinophils # (Auto) 0.1 10 ^3/uL (0-0.8) Basophils # (Auto) 0 10 ^3/uL (0-0.2) Nucleated Red Blood Cells 0.2 % Sodium Level 139 mmol/L (136-145) Chloride Level 110 mmol/L (98-107) Carbon Dioxide Level 19 mmol/L (20-31) Anion Gap 10 (5-15) Blood Urea Nitrogen < 5 mg/dL (9-23) Creatinine 0.40 mg/dL (0.550-1.02) Glomerular Filtration Rate Calc 124 mL/min (>90) BUN/Creatinine Ratio 12.5 (10.0-20.0) Serum Glucose 90 mg/dL (74-106) Calcium Level 9.5 mg/dL (8.7-10.4) Lipase 1025 U/L (12-53) Phosphorus Level 1.3 mg/dL (2.4-5.1) Total Bilirubin 0.7 mg/dL (0.2-1.0) Aspartate Amino Transferase (AST) 82 U/L (13-40) Alanine Aminotransferase (ALT) 24 U/L (7-40) Alkaline Phosphatase 105 U/L (46-116) Total Protein 6.0 g/dL (5.7-8.2) Albumin 3.7 g/dL (3.2-4.8) Amylase Level 344 U/L (30-118) Test 02/19/24 05:49 02/17/24 13:31 02/17/24 13:18 02/17/24 13:10 Hepatitis A Antibody Total Negative (Negative) Hepatitis B Surface Antigen Negative (Negative) Hepatitis B Surface Antibody Negative (Negative) Hepatitis B Core Total Antibody Negative (Negative) Hepatitis C Antibody Negative (Negative) Troponin I High Sensitivity 7 ng/L (</=34) POC Glucose 137 mg/dl (70-106) Blood Gas Critical Value Read Back Yes Blood Gas Notified Whom Danita martins. Blood Gas Notified Time [id number] Blood Gas Notified By Yasmany molder machine Test 02/17/24 10:27 02/17/24 10:15 Prothrombin Time 10.5 sec (9.3-11.8) Prothrombin Time INR 0.99 (0.9-1.15) Activated Partial Thromboplast Time 25.9 SEC (24.5-34.5) D-Dimer, Quantitative 2.56 mg/L FEU (0.0-0.49) Ammonia 52 umol/L (11-32) Lactate Dehydrogenase 291 U/L (120-246) B-Type Natriuretic Peptide 29.10 pg/mL (0-100) Plasma/Serum Blood Alcohol < 3.0 mg/dL (<10) Urine Color Yellow (Yellow) Urine Clarity Turbid (Clear) Urine pH 6.0 (5.0-9.0) Urine Specific [place] 1.018 (1.001-1.035) Urine Protein 2+ (Negative) Urine Ketones 4+ (Negative) Urine Blood 1+ /uL (Negative) Urine Nitrite Negative (Negative) Urine Bilirubin 1+ (Negative) Urine Urobilinogen 4 mg/dL (Negative) Urine Leukocyte Esterase Negative /uL (Negative) Urine RBC <1 /hpf (0 - 4) Urine WBC 1 /hpf (0 - 5) Urine Squamous Epithelial Cells Few /hpf (<5) Urine Bacteria None seen /hpf (None Seen) Urine Hyaline Casts Many /lpf (0 - 2) Urine Mucus Few (None Seen) Urine Glucose Normal mg/dL (Normal) Urine Test Negative (Negative) Urine Opiates Screen Neg (NEGATIVE) Urine Fentanyl Screen Neg (NEGATIVE) Urine Barbiturates Screen Neg (NEGATIVE) Urine Phencyclidine Screen Neg (NEGATIVE) Urine Amphetamines Screen Neg (NEGATIVE) Urine Benzodiazepines Screen Neg (NEGATIVE) Urine Cocaine Screen Neg (NEGATIVE) Urine Cannabinoids Screen Neg (NEGATIVE) Other Laboratory Tests 02/21/24 18:45 02/21/24 06:00 Brief Hx & Hospital Course: 43-year-old female with Past medical history of hypertension presents with complaints of abdominal pain, nausea, vomiting, Red Streaking in her emesis x2 days. Also endorses the shortness of breath which is triggered by The abdominal pain. Patient does endorse daily alcohol consumption. No history of diabetes. On arrival to the emergency department patient is noted to be hypertensive with the blood pressure 215/149 And started on a nicardipine drip. At this time patient denied fevers, chills, shortness of breath, Chest pain, palpitations, Coffee ground emesis, hematochezia, melena. She is admitted and evaluated by tire trucker for her symptoms. Patient recommended EGD which she underwent. Please see the detailed EGD report for findings. Post EGD patient brought to the back to the floor and advised to monitor further and start on proton pump inhibitor and other medications as recommended by tire trucker. However patient did not want to stay in the hospital any longer and left against medical advice. I was notified by the nurse patient leaving AMA. Consults/Reason for consult EXAM: Two-dimensional and M-mode echocardiogram with Doppler and color Doppler. Blood Pressure: 126/92 mmHg INDICATION Hypertensive urgency RISK FACTORS Height: 5'4", Weight: 132 DIMENSIONS LVDd 3.3 (3.8-5.7cm) LA (2D) 3.5 (1.9-4.0cm) Aortic Root 3.3 (2.0- 3.7cm) LVDs 2.3 (2.5-4.0cm) LA (MM) (1.9-4.0cm) Aortic Cusp Exc 2.1 (1.5- 2.0cm) EF (%) 60.0 (55-70%) Rt. Atrium 3.4 (1.9-4.0cm) Asc. Aorta cm IVSd 1.1 (0.7-1.1cm) RV (D) (1.8-2.4cm) PWd 1.3 (0.7-1.1cm) Mitral Valve Mitral Mitral Stenosis E wave 0.43m/s MV Mean GR. mmHg A wave 0.69m/s MV Peak GR. mmHg E/A ratio 0.6 2D MVA cm2 DECEL Time 200ms PRESS 1/2 Time ms Aortic Valve Aortic Valve Aortic Stenosis V1 0.78m/s AO Mean GR. 3mmHg V2 1.10m/s AO Peak GR. 5mmHg LVOT Diameter 2.2 (1.8-2.4cm) Doppler HIMANSHU 2.69cm2 Pulmonic Valve V2 0.60m/s Tricuspid Valve TR Velocity 2.21m/s RVSP 23mmHg Conclusion Technically good study. Sinus rhythm. Concentric LVH. Valves are normal. 65% ejection fraction. Dopplers normal. No pericardial effusion masses or vegetations. SIGNED BY: MICHELLE PETTIT Sr., MD SIGNED DATE/TIME: 02/19/24 1423 Operations or Procedures Operative Report DATE OF OPERATION: 02/21/24 PROCEDURE: Upper Endoscopy with biopsy. PREOPERATIVE INDICATION: The patient is a 43 -year-old female undergoing endoscopy for upper GI bleed and drop in hemoglobin hematocrit POSTOPERATIVE DIAGNOSES: 1. Patient had a tight web at the proximal esophagus which was auto dilated with the endoscope 2. 1-2 cm sliding-type hiatal hernia with grade A erosive esophagitis 3. Moderate gastroduodenitis with multiple superficial gastric and duodenal ulcers and erosions 4. Otherwise normal examination up to the 2nd and 3rd part of the duodenal with no active bleeding at this time except for oozing from biopsy sites PROCEDURE PERFORMED BY: Suzanne Frazier GI NURSE: Mirna SCOPE: Olympus videoendoscope. ASA CLASS: 3. PREOPERATIVE MEDICATIONS: Dr. Thad Oviedo PROCEDURE IN DETAIL: After obtaining an informed consent, the patient was placed on left lateral decubitus position. The patient was then sedated with the above medications. A bite block was placed between her teeth. The endoscope was then passed into the esophagus. Patient had a tight web just below the upper esophageal sphincter area through which the endoscope passed through with slight resistance with auto dilation of the web. The endoscope was then passed into the esophagus, and through the stomach and pylorus up to the second and third part of the duodenum. The endoscope was then withdrawn. The 2nd and 3rd part of the duodenal were normal. Duodenal bulb and postbulbar area showed moderate duodenitis with superficial erosions and tiny ulcers. The pre-pyloric area and antrum also showed [id number] gastritis with pre-pyloric antral gastric erosions. On retroflexion the fundus cardia and angularis were normal. Patient had a 1-2 cm sliding-type hiatal hernia with grade a erosive esophagitis The remaining distal and proximal esophagus and oropharynx were unremarkable. There was minimal oozing from the site of the web dilation. I was only able to obtain gastric biopsies on this procedure because patient developed bronchospasm which resolved with aspiration and oxygen supplementation The patient was stable at the end of the procedure. COMPLICATIONS : None SPECIMENS: Gastric biopsies DISPOSITION: Transfer back to the floor Stable PLAN: 1. Await for biopsy result 2. Will place pt on Protonix 40 mg IV q.12 hours 3. Continue NPO status except for ice chips for another 12-24 hours 4. Patient can then subsequently be started on a clear liquid diet 5. Patient will be given a nebulizer treatment in the postop area and on the floor as needed 6. Monitor labs and transfuse 1 unit PRBC if hemoglobin drops below seven 7. Start IV iron supplementation 8. DC aspirin NSAIDs smoking alcohol 9. Patient will follow up in my office upon discharge for ongoing GI management Condition at Discharge: Undetermined Final Diagnosis/Problems List Gastroduodenitis status post EGD Problems List: (1) Dehydration Status: Acute (2) Hypertension Status: Acute (3) MADELINE (acute kidney injury) Status: Acute Discharge Disposition: AMA Discharge Statement: "Patient was advised to return to the ER or call 911 if any headaches, dizziness, shortness of breath, chest pain, abdominal pain, bleeding, fevers, or worsening of medical condition. Patient was counseled about treatment plan, medications, possible side effects, patientverbalized understanding. All questions were answered to the best of my ability. This discharge took greater then 30 minutes in planning, reviewing documentation, counseling the patient, and discussing with other team members." ASSESSMENT ASSESSMENT Assessment SOLA MARR MD Feb 28, 2024 12:23
== END 2024-02-21 18:30 | disposition left against medical advice (07) | DRG 241 ==
LOC: ER 08:57 → EDBD 08:57 → TELE 21:40 → TELE-E-ADS 02-18 14:07
PROVIDERS: ADMIT Internal Medicine; ATTEND Internal Medicine
PROC: 0DB68ZX Excision of Stomach, Via Natural or Artificial Opening Endoscopic, Diagnostic (ICD-10-PCS; principal; 2024-02-21 11:01)
DX: K29.71 Gastritis, unspecified, with bleeding (principal); N17.0 Acute kidney failure with tubular necrosis; E10.10 Type 1 diabetes mellitus with ketoacidosis without coma; K85.20 Alcohol induced acute pancreatitis without necrosis or infection; K22.11 Ulcer of esophagus with bleeding; K25.4 Chronic or unspecified gastric ulcer with hemorrhage; K26.4 Chronic or unspecified duodenal ulcer with hemorrhage; K29.91 Gastroduodenitis, unspecified, with bleeding; K29.81 Duodenitis with bleeding; E83.39 Other disorders of phosphorus metabolism; K76.0 Fatty (change of) liver, not elsewhere classified; E86.0 Dehydration; I16.0 Hypertensive urgency; E87.6 Hypokalemia; E83.42 Hypomagnesemia; F10.20 Alcohol dependence, uncomplicated; J45.909 Unspecified asthma, uncomplicated; F17.210 Nicotine dependence, cigarettes, uncomplicated; D64.9 Anemia, unspecified; Y90.9 Presence of alcohol in blood, level not specified; K44.9 Diaphragmatic hernia without obstruction or gangrene; Z91.148 Patient's other noncompliance with medication regimen for other reason; Z98.51 Tubal ligation status; Z88.1 Allergy status to other antibiotic agents; Z82.49 Family history of ischemic heart disease and other diseases of the circulatory system; Z79.4 Long term (current) use of insulin
CPT/HCPCS: 36415; 36600; 71045; 74176; 76705; 80048; 80053; 80307; 80320; 81001; 81025; 82140; 82150; 82805; 82962; 83615; 83690; 83735; 83880; 84100; 84132; 84484; 85025; 85379; 85610; 85730; 86704; 86706; 86708; 86803; 86850; 86870; 86900; 86901; 87340; 93306; G0378; J2003; J2250; J2405; J2704; J3480; J3490